=== PATIENT | female | born 1965 | race African-American/Black ===

== ENCOUNTER 2017-01-25 12:21 | Inpatient (IN) | payer MEDICARE ==
[~2017-01-25] VITALS: Ht 165.1 cm; Wt 77.9 kg
[2017-01-25 12:52] LABS: BASOPHILS 0.1 % (0-2); EOSINOPHILS 0 % (0-7); HEMATOCRIT 40.4 % (36.0-48.0); HEMOGLOBIN 13.4 g/dL (12-16); IMMATURE GRANULOCYTES 0.3 % (0-5); LYMPHOCYTES 13.1 % (15-50); MCH 31.8 pg (26.0-34.0); MCHC 33.2 g/dL (31.0-37.0); MCV 95.7 fL (80.0-100.0); MEAN PLATELET VOLUME 11.2 fL (7.4-10.4); MONOCYTES 6.5 % (2-11); PLATELET COUNT 394 10x3/uL (130-400); RBC 4.22 10x6/uL (4.00-5.40); RDW 18.2 % (11.5-14.5); WBC 18.5 10x3/uL (4.8-10.8)
[2017-01-25 13:07] LABS: ALBUMIN 4.3 g/dL (3.4-5.0); ANION GAP 27.6 mmol/L (8-16); BILIRUBIN - TOTAL 0.57 mg/dL (0.2-1.3); CREATININE - SERUM 9.8 mg/dL (0.6-1.3); POTASSIUM - SERUM 4.6 mmol/L (3.5-5.1); PROTEIN - SERUM 9.4 g/dL (6.4-8.2)
--- NOTE | 2017-01-25 15:47 | NUR ---
RECEIVED PT TO ROOM 2126, VIA WHEELCHAIR, PT TRANSFER SELF TO BED WITH NO PROBLEM. ORIENTED PT TO ROOM AND CALL LIGHT. PT FEELING A LITTLE NAUSEATED BUT WAS GIVEN 8MG OF ZOFRAN IN ER. WILL ASSESS PT AND START PLAN OF CARE.
[2017-01-25 16:26] VITALS: BP 146/82; BMI 28.1
[2017-01-25 17:05] LABS: APPEARANCE HAZY (CLEAR); COLOR YELLOW (YELLOW); GLUCOSE 1000 mg/dL (NEGATIVE); KETONE SMALL mg/dL (NEGATIVE); LEUKOCYTE ESTERASE TRACE (NEGATIVE); NITRITE NEGATIVE (NEGATIVE); PROTEIN 2+ mg/dL (NEGATIVE)
[2017-01-25 17:06] LABS: BACTERIA MANY /hpf (NONE SEEN); BILIRUBIN NEGATIVE (NEGATIVE); MUCUS <1+ /lpf (NONE SEEN); RED CELLS - URINE 0-5 /hpf (0-5); UROBILINOGEN NORMAL (NORMAL)
--- NOTE | 2017-01-25 17:36 | NUR ---
BLOOD SUGAR OF 404, 20UNITS OF HUMALOG GIVEN PER S/S. AND SANDIP CARRANZA NOTIFIED. WILL RECHECK AGAIN IN ABOUT 1HR. PT IN BED, DENIES ANY NEEDS AT THIS TIME. CALL LIGHT IN REACH, NAD NOTED, WILL CONTINUE TO MONITOR.
[2017-01-25 17:51] LABS: CKMB 7.8 U/L (0.0-3.6); CREATINE KINASE 294 UL (21-215); MAGNESIUM - SERUM 2.3 mg/dL (1.8-2.4); PHOSPHOROUS 5.5 mg/dL (2.5-4.9)
--- NOTE | 2017-01-25 19:34 | NUR ---
ASSESSMENT COMPLETE, A&O. VITALS STABLE. RESPERATIONS EVEN ON RA. IV TO RIGHT HAND WITH VANC. INFUSING. NO S/S ADVERSE REACTION NOTED. IV SITE CLEAN AND DRY. PT DENIES NEEDS, BED LOW, CL IN REACH.
[2017-01-25 20:00] VITALS: BP 141/46
[2017-01-25] MEDS ORDERED: LEVEMIR100 U/M1 SC (20:21)
[2017-01-25] MEDS ORDERED: CELEXA10 MG PO (20:21)
[2017-01-25] MEDS ORDERED: LIPITOR10 MG PO (20:22)
[2017-01-25] MEDS ORDERED: ZOFRAN ODT4 MG/UDTAB PO (20:23)
[2017-01-25] MEDS ORDERED: STOOL SOFTENER100 M1 PO (20:23)
[2017-01-25] MEDS ORDERED: NEURONTIN 400400 MG PO (20:23)
[2017-01-25] MEDS ORDERED: REQUIP0.5 MG PO (20:24)
[2017-01-25] MEDS ORDERED: PLAVIX75 MG PO (20:24)
[2017-01-25] MEDS ORDERED: CATAPRES0.2 MG PO (20:25)
[2017-01-25] MEDS ORDERED: NORVASC10 MG PO (20:25)
[2017-01-25] MEDS ORDERED: ISOSORBIDE MONO60 M1 PO (20:26)
[2017-01-25] MEDS ORDERED: TUMS500 MG PO (20:26)
[2017-01-25] MEDS ORDERED: ACETAMINOPHEN500 M1 PO (20:28)
[2017-01-25] MEDS ORDERED: GLIMEPIRIDE4 MG PO (20:28)
[2017-01-25] MEDS ORDERED: HYDRALAZINE HC100 MG PO (20:29)
[2017-01-25] MEDS ORDERED: METOPROLOL TAR100 M1 PO (20:29)
--- NOTE | 2017-01-25 20:34 | NUR ---
NORCO 1 TAB GIVEN FOR C/O PAIN TO HEAD. RATES PAIN AT A 6 ON PAIN SCALE. AT BED SIDE WITH PTS HOME MEDICATIONS, MED REC COMPLETE.
--- NOTE | 2017-01-25 21:47 | NUR ---
HS MEDS GIVEN, BS 272, COVERED PER S/S. AT BED SIDE, BED LOW, CL IN REACH, PT DENIES NEEDS.
--- NOTE | 2017-01-26 00:11 | NUR ---
ASSESSMENT UNCHANGED. VSS, AFEBRILE. RESP EVEN UNLABORED. NO NEEDS VOICED. WILL CONT TO MONITOR.
--- NOTE | 2017-01-26 03:13 | NUR ---
RESTING WITH EYES CLOSED, RESPERATIONS EVEN, NO S/S DISTRES NOTED.
[2017-01-26 03:57] VITALS: BP 138/42
[2017-01-26 06:26] LABS: HEMATOCRIT 41.3 % (36.0-48.0); HEMOGLOBIN 13.4 g/dL (12-16); MCH 31.7 pg (26.0-34.0); MCHC 32.4 g/dL (31.0-37.0); MCV 97.6 fL (80.0-100.0); MEAN PLATELET VOLUME 11.6 fL (7.4-10.4); PLATELET COUNT 413 10x3/uL (130-400); RBC 4.23 10x6/uL (4.00-5.40); RDW 18.2 % (11.5-14.5); WBC 20.4 10x3/uL (4.8-10.8)
[2017-01-26 06:35] LABS: ANION GAP 23.5 mmol/L (8-16); CALCIUM 10.6 mg/dL (8.5-10.1); CARBON DIOXIDE 22.3 mmol/L (21.0-32.0); CREATININE - SERUM 10.9 mg/dL (0.6-1.3); VANCOMYCIN - RANDOM 14.7 ug/mL (10.0-20.0)
[2017-01-26 06:37] LABS: POTASSIUM - SERUM 3.8 mmol/L (3.5-5.1)
[2017-01-26 07:23] LABS: BASOPHILS 1 % (0-2); LYMPHOCYTES 19 % (15-50); MONOCYTES 2 % (2-11); NEUTROPHILS 75 % (40-80); PLATELET ESTIMATE NORMAL
--- NOTE | 2017-01-26 07:30 | NUR ---
RESTING QUIETLY RESP UNLABORED NAD NOTED
[2017-01-26 12:16] VITALS: Ht 165.1 cm; Wt 77.9 kg
[2017-01-26 19:00] VITALS: BP 198/107
--- NOTE | 2017-01-26 19:50 | NUR ---
INITIAL ROUNDS COMPLETED AT 1910 HRS. ASSESSMENT COMPLETED AT THAT TIME. IV TO R HAND WITH NS AT 10CC/HR. IV PATENT. LAVF WITH GOOD BRUIT AND THRILL. R CHEST HEMOSPLIT CLEAN, DRY AND INTACT. LUNGS ESSENTIALLY CTA. HAS C/O NAUSEA. ZOFRAN 4MG SIVP GIVNE. PT SITTING UP IN A CHAIR. WILL CONTINUE TO MONITOR.
--- NOTE | 2017-01-26 20:01 | NUR ---
BP ELEVATED. 198/107 THEN 176/97. OTHER VSS. RENAL SERVICES PAGED.
--- NOTE | 2017-01-26 20:14 | NUR ---
Rolo CARRANZA APN FROM RENAL SERVICES RETURNS CALL. INFORMED OF PT'S BP, OTHER VS AND OVERALL STATUS. NEW ORDERS RECEIVED AND NOTED.
--- NOTE | 2017-01-26 22:04 | NUR ---
PM MEDS INCLUDING CLONIDINE 0.1MG PO FOR ELEVATED BP. PT CURRENTLY RESTING WITH EYES CLOSED. RESP EVEN AND REGULAR. SR UP X2, CALL LIGHT WITHIN REACH.
[2017-01-26 23:19] VITALS: BP 155/84
--- NOTE | 2017-01-26 23:23 | NUR ---
B NOW 155/84. PT DENIES ANY DISCOMFORT. WILL CONTINUE TO MONITOR.
[2017-01-27] VITALS: BP 155/84
--- NOTE | 2017-01-27 02:24 | NUR ---
PT RESTING WITH EYES CLOSED. RESP EVEN AND REGULAR. SR UP X2, CALL LIGHT WITHIN REACH.
[2017-01-27 04:00] VITALS: BP 140/83
--- NOTE | 2017-01-27 04:41 | NUR ---
NORCO PO GIVEN FOR C/O ABD PAIN. DENIES ANY NAUSEA. STERILE CONTAINER IN BR FOR URINE SAMPLE. REINFORCED TO PT NEED SAMPLE NEXT TIME SHE URINATES. PT STATES UNDERSTANDING. WARM BLANKET PROVIDED PER REQUEST. WILL CONTINUE TO MONITOR. CALL LIGHT WITHIN REACH.
--- NOTE | 2017-01-27 06:30 | NUR ---
VSS THIS AM. PT DENIES ANY DISCOMFORT. NEEDS MET; WILL CONTINUE TO MONITOR.
[2017-01-27 06:52] LABS: BASOPHILS 0.1 % (0-2); EOSINOPHILS 0.2 % (0-7); HEMATOCRIT 36.8 % (36.0-48.0); IMMATURE GRANULOCYTES 0.2 % (0-5); LYMPHOCYTES 22.5 % (15-50); MCH 31.5 pg (26.0-34.0); MCHC 32.6 g/dL (31.0-37.0); MCV 96.6 fL (80.0-100.0); MONOCYTES 7.1 % (2-11); NEUTROPHILS 69.9 % (40-80); RBC 3.81 10x6/uL (4.00-5.40); RDW 17.7 % (11.5-14.5)
[2017-01-27 06:53] LABS: PLATELET COUNT 327 10x3/uL (130-400); WBC 12.3 10x3/uL (4.8-10.8)
[2017-01-27 07:15] LABS: ANION GAP 25.6 mmol/L (8-16); CARBON DIOXIDE 17.5 mmol/L (21.0-32.0); VANCOMYCIN - RANDOM 20.8 ug/mL (10.0-20.0)
--- NOTE | 2017-01-27 07:20 | NUR ---
REPORT RECIVED. PT RESTING QUIELY, RR EVEN AND UNLABORED. REPORTS FEELING "NOT GOOD." REQUESTED TO HAVE DIALYSIS TODAY AND GABAPENTIN RESTARTED. WILL SPEAK TO RENAL SERVICER ABOUT PT REQUEST. WILL CTM.
[2017-01-27 07:21] LABS: PHOSPHOROUS 9.2 mg/dL (2.5-4.9); POTASSIUM - SERUM 5.1 mmol/L (3.5-5.1)
[2017-01-27 08:13] VITALS: BP 139/70
--- NOTE | 2017-01-27 09:00 | NUR ---
PT TRANSFERRED TO [facility].
[2017-01-27 15:40] VITALS: BP 198/113
--- NOTE | 2017-01-27 15:45 | NUR ---
PTS BP IS ELEVATED. GAVE PRN BP MED, WILL RECHECK IN 1 HR AND CTM.
[2017-01-27 19:20] VITALS: BP 150/91
--- NOTE | 2017-01-27 20:03 | NUR ---
ASSESSMENT COMPLETED AT 1940 HRS. VSS. IV TO R HAND SL. LAVF WITH GOOD BRUIT AND THRILL. R CHEST HEMOSPLIT CLEAN, DRY AND INTACT. LUNGS DIMINISHED IN BASES BILAT. DENIES ANY DISCOMFORT. WILL CONTINUE TO MONITOR.
--- NOTE | 2017-01-27 22:11 | NUR ---
PM FSBS 164. 4 UNITS HUMALOG GIVEN SUB-Q TO UPPER R ARM. PM MEDS GIVEN, PM SNACK SERVED. WILL CONTINUE TO MONITOR.
--- NOTE | 2017-01-28 00:09 | NUR ---
PT RSTING WITH EYES CLOSED. RESP EVEN AND REGULAR. SR UP X2,CALL LIGHT WITHIN REACH.
[2017-01-28 00:40] VITALS: BP 106/66
--- NOTE | 2017-01-28 03:57 | NUR ---
PT RESTING WITH EYES CLOSED. RESP EVEN AND REGULAR. SR UP X2, CALL LIGHT WITHIN REACH.
[2017-01-28 04:30] VITALS: BP 132/83
[2017-01-28 06:17] LABS: BASOPHILS 0.1 % (0-2); EOSINOPHILS 0.9 % (0-7); HEMATOCRIT 37.4 % (36.0-48.0); HEMOGLOBIN 12.1 g/dL (12-16); IMMATURE GRANULOCYTES 0.2 % (0-5); LYMPHOCYTES 26.4 % (15-50); MCH 31.8 pg (26.0-34.0); MCHC 32.4 g/dL (31.0-37.0); MCV 98.4 fL (80.0-100.0); MEAN PLATELET VOLUME 11.4 fL (7.4-10.4); MONOCYTES 9.6 % (2-11); NEUTROPHILS 62.8 % (40-80); PLATELET COUNT 310 10x3/uL (130-400); RDW 17.7 % (11.5-14.5); WBC 8.5 10x3/uL (4.8-10.8)
--- NOTE | 2017-01-28 06:36 | NUR ---
VSS THROUGHOUT NIGHT. PT STATED NORCO HELPED FOOT PAIN. NEEDS MET; WILL CONTINUE TO MONITOR.
[2017-01-28 06:43] LABS: ANION GAP 24.9 mmol/L (8-16); CARBON DIOXIDE 19.9 mmol/L (21.0-32.0); PHOSPHOROUS 8.3 mg/dL (2.5-4.9)
[2017-01-28 06:53] LABS: POTASSIUM - SERUM 3.8 mmol/L (3.5-5.1)
--- NOTE | 2017-01-28 07:19 | NUR ---
REPORT RECIEVED. PT DENIES NEEDS AT THIS TIME. RR EVEN AND UNLABORED. DENIES PAIN. PT RESTING QUIETLY, WILL CTM.
[2017-01-28 08:00] VITALS: BP 158/86
[2017-01-28 13:34] VITALS: BP 157/70
[2017-01-28 17:18] VITALS: BP 146/48
--- NOTE | 2017-01-28 18:18 | NUR ---
PT RESTING QUIELTY, GAVE PRN PAIN MED. RR EVEN AND UNLABORED, WILL GIVE REPORT ON PT CONDTION FOR THE DAY.
[2017-01-28 19:00] VITALS: BP 148/63
[2017-01-29] VITALS: BP 151/77
--- NOTE | 2017-01-29 00:39 | NUR ---
C/O LEG PAIN. MEDICATED WITH NORCO.
[2017-01-29 04:03] VITALS: BP 167/90
[2017-01-29 05:55] LABS: BASOPHILS 0.3 % (0-2); EOSINOPHILS 3.5 % (0-7); HEMOGLOBIN 12.7 g/dL (12-16); IMMATURE GRANULOCYTES 0.1 % (0-5); LYMPHOCYTES 38.9 % (15-50); MCHC 31.8 g/dL (31.0-37.0); MCV 97.6 fL (80.0-100.0); MEAN PLATELET VOLUME 10.9 fL (7.4-10.4); MONOCYTES 8.1 % (2-11); NEUTROPHILS 49.1 % (40-80); PLATELET COUNT 285 10x3/uL (130-400); RDW 16.9 % (11.5-14.5); WBC 7.8 10x3/uL (4.8-10.8)
[2017-01-29 06:36] LABS: ANION GAP 25.4 mmol/L (8-16); CALCIUM 7.5 mg/dL (8.5-10.1); CARBON DIOXIDE 19.5 mmol/L (21.0-32.0); POTASSIUM - SERUM 3.9 mmol/L (3.5-5.1); VANCOMYCIN - RANDOM 31.6 ug/mL (10.0-20.0)
--- NOTE | 2017-01-29 07:26 | NUR ---
AM ROUNDS- PT IN BED, DENIES ANY NEEDS AT THIS TIME. RESP EVEN AND UNLABORED, RT HAND IV SL. BED LOW AND WHEELS LOCKED, BEDSIDE RAILS X2. CALL LIGHT IN REACH, NAD NOTED, WILL CONTINUE TO MONITOR.
[2017-01-29 08:00] VITALS: BP 168/86
--- NOTE | 2017-01-29 09:37 | NUR ---
AM MEDS GIVEN AT THIS TIME. PT IN BED, DENIES ANY NEEDS A THIS TIME. CALL LIGHT IN REACH, NAD NOTED, WILL CONTINUE TO MONITOR.
--- NOTE | 2017-01-29 10:38 | NUR ---
PT TRANSFERED TO DIALYSIS VIA WHEELCHAIR NAD NOTED.
[2017-01-29 16:00] VITALS: BP 126/81
--- NOTE | 2017-01-29 16:17 | NUR ---
BLOOD SUGAR OF 214, 8UNITS OF HUMALOG GIVEN PER S/S. ALSO ADMINISTERED 5MG OF NORCO FOR PAIN LEVEL OF 10/10. PT UP TO SIDE OF BED, RESP EVEN AND UNLABORED, DENIES ANY OTHER NEEDS AT THIS TIME. CALL LIGHT IN REACH, NAD NOTED, WILL CONTINUE TO MONITOR.
[2017-01-29 19:00] VITALS: BP 177/92
--- NOTE | 2017-01-29 20:16 | NUR ---
RESTING QUIETLY WATCHING TV DENIES ANY NEEDS OR DISCOMFORT NAD NOTED
--- NOTE | 2017-01-29 20:58 | NUR ---
HS MEDS GIVEN WITH FRESH ICE WATER, BS 201, COVERED PER S/S.
--- NOTE | 2017-01-29 21:31 | NUR ---
NORCO 1 TAB GIVEN FOR C/O PAIN TO BACK AND ABD. RATES PAIN AT AN 8 ON PAIN SCALE.
[2017-01-30] VITALS: BP 160/86
--- NOTE | 2017-01-30 02:58 | NUR ---
RESTING WITH EYES CLOSED, RESPERATIONS EVEN, NO S/S DISTRESS NOTED.
[2017-01-30 04:37] VITALS: BP 169/79
--- NOTE | 2017-01-30 05:05 | NUR ---
ZOFRAN 4 MG GIVEN FOR C/O NAUSEA.
[2017-01-30 05:13] LABS: BASOPHILS 0.2 % (0-2); HEMATOCRIT 36.5 % (36.0-48.0); HEMOGLOBIN 11.9 g/dL (12-16); IMMATURE GRANULOCYTES 0.2 % (0-5); LYMPHOCYTES 38.7 % (15-50); MCH 31.5 pg (26.0-34.0); MCHC 32.6 g/dL (31.0-37.0); MCV 96.6 fL (80.0-100.0); MEAN PLATELET VOLUME 10.9 fL (7.4-10.4); MONOCYTES 13.7 % (2-11); NEUTROPHILS 43.2 % (40-80); PLATELET COUNT 248 10x3/uL (130-400); RBC 3.78 10x6/uL (4.00-5.40); RDW 16.6 % (11.5-14.5); WBC 8.6 10x3/uL (4.8-10.8)
[2017-01-30 07:01] LABS: ANION GAP 20.6 mmol/L (8-16); CALCIUM 7.8 mg/dL (8.5-10.1); CARBON DIOXIDE 23.3 mmol/L (21.0-32.0); CREATININE - SERUM 10.4 mg/dL (0.6-1.3); POTASSIUM - SERUM 3.9 mmol/L (3.5-5.1); VANCOMYCIN - RANDOM 22.8 ug/mL (10.0-20.0)
[2017-01-30 07:05] LABS: PHOSPHOROUS 9.1 mg/dL (2.5-4.9)
[2017-01-30 08:42] VITALS: BP 163/78
[2017-01-30 10:17] LABS: HEPATITIS C ANTIBODY <0.1 (0.0-0.9)
[2017-01-30 12:40] VITALS: BP 143/89
--- NOTE | 2017-01-30 15:55 | NUR ---
UP ON SIDE OF BED - STATES "I AM FEELING BETTER" - DENIES ANY NEEDS AT THIS TIME
--- NOTE | 2017-01-30 19:20 | NUR ---
PT SITTING ON SIDE OF BED. C/O FELLING LIKE SHE NEEDS TO THROW UP. PT DENIES ANY OTHER NEEDS. NO S/S OF DISTRESS. WILL CHECK TO SEE IF ITS TIME FOR ZOFRAN. WILL CPOC
[2017-01-30 20:00] VITALS: BP 116/92
--- NOTE | 2017-01-30 22:17 | NUR ---
PT RESTING IN BED. C/O PAIN AND PAIN MED GIVEN. 8 UNITS GIVEN FOR A BLOOD SUGAR OF 234. PT DENIES ANY NEEDS. NO S/S OF DISTRESS. WILL CPOC
[2017-01-31 04:00] VITALS: BP 172/47
[2017-01-31 06:23] LABS: BASOPHILS 0.1 % (0-2); EOSINOPHILS 4.5 % (0-7); HEMATOCRIT 34.7 % (36.0-48.0); HEMOGLOBIN 11.8 g/dL (12-16); LYMPHOCYTES 28.7 % (15-50); MCH 32.2 pg (26.0-34.0); MCV 94.8 fL (80.0-100.0); MEAN PLATELET VOLUME 11.8 fL (7.4-10.4); MONOCYTES 9.7 % (2-11); RBC 3.66 10x6/uL (4.00-5.40); RDW 16.3 % (11.5-14.5); WBC 6.9 10x3/uL (4.8-10.8)
[2017-01-31 06:25] LABS: PLATELET COUNT 129 10x3/uL (130-400)
[2017-01-31 06:38] LABS: ANION GAP 24.5 mmol/L (8-16); CALCIUM 7.3 mg/dL (8.5-10.1); CARBON DIOXIDE 19.9 mmol/L (21.0-32.0); POTASSIUM - SERUM 4.4 mmol/L (3.5-5.1)
[2017-01-31 06:59] LABS: PHOSPHOROUS 12.8 mg/dL (2.5-4.9)
--- NOTE | 2017-01-31 07:30 | NUR ---
PT SITTING UP ON SIDE OF BED DENIES ANY NEEDS WILL CONT TO MONITOR
[2017-01-31 07:53] VITALS: BP 134/89
--- NOTE | 2017-01-31 10:13 | NUR ---
PT TO DIALYSIS
--- NOTE | 2017-01-31 13:47 | NUR ---
Patient Name: JIMBO LEVY Admission Status: ER Accout number: [id number] Admission Date: 01-25-2017 : 1965 Admission Diagnosis:INFECT/INFLM REACT D/T OTH CARDI/VASC DEV/IMPLNT/GRFT, Attending: Andre Rowan Current LOS: 6 Anticipated DC Date: 01-31-2017 Planned Disposition: Home Primary Insurance: [employer] MEDICARE ADV Discharge Planning Comments: * Is the patient Alert and Oriented? Yes 0 * How many steps to enter\\exit or inside your home? 6 0 * PCP RAISA MEDINA 0 * Pharmacy [facility] ([facility]RAISA 0 * Preadmission Environment Home with Family 0 * ADLs Independent 0 * Equipment Cane Glucometer 0 * Other Equipment NO MEDICAL EQUIPMENT PROVIDER PREFERENCE 0 * List name and contact numbers for known caregivers / representatives who currently or will assist patient after discharge: GAY NOREEN, "MY BABY RAQUEL", 0 * Community resources currently utilized Other 0 * Please name any agencies selected above. OUTPATIENT DILAYSIS, [facility], [facility]TS, 0600, [facility] 0 * Additional services required to return to the preadmission environment? No 0 * Can the patient safely return to the preadmission environment? Yes 0 * Has this patient been hospitalized within the prior 30 days at any hospital? No 0 CM MET WITH PT IN ROOM TO DISCUSS DISCHARGE PLANNING AND NEEDS. PT REPORTS LIVING AT HOME INDEPENDENTLY WITH HER ADULT DAUGHTER. PT HAS CANE AND GLUCOMETER WITH NO MEDICAL EQUIPMENT PROVIDER PREFERENCE AND NO OUTSIDE SERVICES ASSISTING IN THE HOME. PT ATTENDS [facility], [facility], 0600 AND TAKES THE [place] BUS. CM DISCUSSED AVAILABILITY OF HOME HEALTH, REHAB SERVICES AND MEDICAL EQUIPMENT. PT DENIES DISCHARGE NEEDS, REPORTS HER MOTHER WILL PICK HER UP FOR DISCHARGE HOME TODAY. IMPORTANT MESSAGE FROM MEDICARE PROVIDED AND EXPLAINED. Medical Records Tech: Jude Snell
--- NOTE | 2017-01-31 15:20 | NUR ---
WENT OVER DC PAPERWORK WITH PT PT VERBALIZES UNDERSTANDING. PT ASKING ABOUT SCRIPTS FOR MANPREET AND WOODROW. NONE NOTED. WILL CALL DR AND ASK ABOUT THEM. PT STILL WAITING ON HER RIDE. DC PIV WITH CATH TIP INTACT
--- NOTE | 2017-01-31 15:23 | NUR ---
PAGED SON JOHNSON CREATIVE DIRECTOR ABOUT PT SCRIPTS
--- NOTE | 2017-01-31 15:26 | NUR ---
SPOKE WITH SON MCCLURE. SHE SAID THERE IS NO ONE AT HOSPITAL TO WRITE PT SCRIPTS SHE WILL HAVE TO WAIT UNTIL THE DRS ROUND AT DIALYSIS. WILL RELAY THIS TO PT.
--- NOTE | 2017-01-31 18:33 | NUR ---
PT STILL WAITING ON A RIDE TO PICK HER UP
--- NOTE | 2017-01-31 18:51 | NUR ---
PT WAS WHEELED OUT TO FRONT ENTRANCE BY ARIN MARIN
== END 2017-01-31 18:52 | disposition home or self-care (01) | DRG 314 ==
LOC: D.ER 12:21 → D.M2 14:12
PROVIDERS: Emergency Medicine; Internal Medicine Nephrology; ADMIT Internal Medicine Nephrology
PROC: 5A1D00Z (ICD-10-PCS; principal; 2017-01-27)
DX: T82.7XXA Infection and inflammatory reaction due to other cardiac and vascular devices, implants and grafts, initial encounter (principal); A41.9 Sepsis, unspecified organism; N18.6 End stage renal disease; I12.0 Hypertensive chronic kidney disease with stage 5 chronic kidney disease or end stage renal disease; Y83.8 Other surgical procedures as the cause of abnormal reaction of the patient, or of later complication, without mention of misadventure at the time of the procedure; E11.22 Type 2 diabetes mellitus with diabetic chronic kidney disease; E11.65 Type 2 diabetes mellitus with hyperglycemia; Z99.2 Dependence on renal dialysis; Z87.891 Personal history of nicotine dependence; E83.39 Other disorders of phosphorus metabolism; E83.52 Hypercalcemia; D63.1 Anemia in chronic kidney disease

== ENCOUNTER 2017-02-25 12:50 | Inpatient (IN) | payer MEDICARE ==
[~2017-02-25 12:50] MED LIST: ACETAMINOPHEN500 M1 PO; CATAPRES0.2 MG PO; CELEXA10 MG PO; GLIMEPIRIDE4 MG PO; HYDRALAZINE HC100 MG PO; ISOSORBIDE MONO60 M1 PO; LEVEMIR100 U/M1 SC; LIPITOR10 MG PO; METOPROLOL TAR100 M1 PO; NEURONTIN 400400 MG PO; NORVASC10 MG PO; PLAVIX75 MG PO; REQUIP0.5 MG PO; STOOL SOFTENER100 M1 PO; TUMS500 MG PO; ZOFRAN ODT4 MG/UDTAB PO
[2017-02-25 13:28] LABS: BASOPHILS 0.1 % (0-2); EOSINOPHILS 0 % (0-7); HEMATOCRIT 39.2 % (36.0-48.0); HEMOGLOBIN 12.6 g/dL (12-16); IMMATURE GRANULOCYTES 0.2 % (0-5); LYMPHOCYTES 13.4 % (15-50); MCH 31.7 pg (26.0-34.0); MCHC 32.1 g/dL (31.0-37.0); MCV 98.5 fL (80.0-100.0); MEAN PLATELET VOLUME 10.7 fL (7.4-10.4); MONOCYTES 6.4 % (2-11); NEUTROPHILS 79.9 % (40-80); RBC 3.98 10x6/uL (4.00-5.40); RDW 17.5 % (11.5-14.5); WBC 16.2 10x3/uL (4.8-10.8)
[2017-02-25 13:29] LABS: PLATELET COUNT 496 10x3/uL (130-400)
[2017-02-25 13:50] LABS: ALBUMIN 4.4 g/dL (3.4-5.0); ALKALINE PHOSPHATASE 98 U/L (46-116); ALT (SGPT) 14 U/L (10-68); AMYLASE - SERUM 119 U/L (25-115); BILIRUBIN - TOTAL 0.41 mg/dL (0.2-1.3); CALCIUM 10.4 mg/dL (8.5-10.1); CARBON DIOXIDE 15.4 mmol/L (21.0-32.0); CREATININE - SERUM 12.1 mg/dL (0.6-1.3); LIPASE 223 U/L (73-393); MAGNESIUM - SERUM 2.6 mg/dL (1.8-2.4); POTASSIUM - SERUM 4.3 mmol/L (3.5-5.1); PROTEIN - SERUM 8.9 g/dL (6.4-8.2); SODIUM 126 mmol/L (136-145); UREA NITROGEN 53 mg/dL (7-18); eGFR NON AFRICAN AMERICAN 3 mL/min (90-120)
[2017-02-25 14:04] LABS: CALC OSMOLALITY 286 mosm/kg (275-300)
[2017-02-25 14:06] LABS: CHLORIDE - SERUM 85 mmol/L (98-107); GLUCOSE 467 mg/dL (74-106)
[2017-02-25 14:13] LABS: KETONE - SERUM NEGATIVE (NEGATIVE)
--- NOTE | 2017-02-25 15:40 | NUR ---
PATIENT TO FLOOR FROM ER, PATIENT IS ALERT AND ORIENTED AT THIS TIME. PATIENT HAS A R HAND IV INFUSING WITH NS AT 100ML/HR. PATIENT HAS A R CHEST HEMOSPLIT FOR DIAYLSIS. ALSO HAS A L AVF WITH BRUIT AND THRILL NOTED. BREATH SOUNDS CLEAR AND EQUAL. S1S2 HEART SOUNDS NOTED. PATIENT DENIES ANY NEEDS OR PAIN. BED IS LOW AND LOCKED. CPOC
[2017-02-25 16:11] VITALS: BP 171/79
[2017-02-25 16:15] VITALS: BP 171/79; BMI 21.6
--- NOTE | 2017-02-25 16:45 | NUR ---
FSBS 256, 16 UNITS OF HUMALOG GIVEN PER SLIDING SCALE. PATIENT DENIES ANY NEEDS. CPOC
--- NOTE | 2017-02-25 18:12 | NUR ---
PATIENT RESTING, NAD NOTED. AROUSES TO VOICE DENIES ANY NEEDS. CPOC
[2017-02-25 19:00] VITALS: BP 120/70
--- NOTE | 2017-02-25 19:05 | NUR ---
ROUNDING NOTE: PT IS SLEEPING DURING CHANGE OF SHIFT. NS RUNNING AT 100CC/HR. PT IS LEFT ARM RESERVE D/T LEFT ARM FISTULA. WILL CONT TO MONITOR.
[2017-02-26] VITALS: BP 112/57
--- NOTE | 2017-02-26 03:00 | NUR ---
ANSWERED CALLBELL, PT REQUESTING SOMETHING FOR PAIN, REPORTING 6/10 PAIN IN BILATERAL FEET DUE TO LONGSTANDING NEUROPATHY WELL ABDOMINAL PAIN. PT TAKES NEURONTIN 400MG TID AT HOME, BUT SHE DOES NOT HAVE NEURONTIN OR ANYTHING ELSE ORDERED FOR PAIN CURRENTLY. PAGED RENAL ANSWERING SERVICE. RECEIVED CALL BACK FROM SON MCKEON APN W/ NEW ORDERS FOR TYLENOL PRN AND A ONE TIME DOSE OF NEURONTON 400MG. A CONTINUED ORDER FOR NEURONTIN WILL BE RE-EVALUATED BY THE RENAL TEAM IN THE AM.
[2017-02-26 04:10] VITALS: BP 141/73
[2017-02-26 04:39] LABS: BASOPHILS 0.1 % (0-2); EOSINOPHILS 0.2 % (0-7); HEMATOCRIT 32.9 % (36.0-48.0); HEMOGLOBIN 10.5 g/dL (12-16); IMMATURE GRANULOCYTES 0.2 % (0-5); LYMPHOCYTES 24.8 % (15-50); MCHC 31.9 g/dL (31.0-37.0); MCV 97.1 fL (80.0-100.0); MEAN PLATELET VOLUME 10.5 fL (7.4-10.4); MONOCYTES 6.7 % (2-11); PLATELET COUNT 440 10x3/uL (130-400); RBC 3.39 10x6/uL (4.00-5.40); RDW 17.2 % (11.5-14.5)
[2017-02-26 06:54] LABS: ANION GAP 24.9 mmol/L (8-16); CALCIUM 9.3 mg/dL (8.5-10.1); CARBON DIOXIDE 18.8 mmol/L (21.0-32.0); CREATININE - SERUM 12.4 mg/dL (0.6-1.3); POTASSIUM - SERUM 3.7 mmol/L (3.5-5.1)
[2017-02-26 07:07] LABS: APPEARANCE TURBID (CLEAR); BILIRUBIN NEGATIVE (NEGATIVE); COLOR YELLOW (YELLOW); GLUCOSE NEGATIVE (NEGATIVE); KETONE NEGATIVE (NEGATIVE); NITRITE NEGATIVE (NEGATIVE); PROTEIN 3+ mg/dL (NEGATIVE); SPECIFIC GRAVITY 1.025 (1.005-1.020); UROBILINOGEN NORMAL (NORMAL)
[2017-02-26 07:08] LABS: BACTERIA MODERATE /hpf (NONE SEEN); HYALINE CAST 0-5 /lpf (NONE SEEN); MUCUS <1+ /lpf (NONE SEEN); WHITE CELLS - URINE 25-50 /hpf (0-5); YEAST >1+ /hpf (NONE SEEN)
[2017-02-26 07:09] LABS: WAXY CAST 0-5 /lpf (NONE SEEN)
--- NOTE | 2017-02-26 07:30 | NUR ---
RECEIVED PT IN BED EYES CLOSED RESP UNLABORED SKIN W/D NAD NOTED
[2017-02-26 07:55] VITALS: BP 141/56
--- NOTE | 2017-02-26 10:31 | NUR ---
PT TO DIALYSIS VIA BED IN STABLE CONDITION
--- NOTE | 2017-02-26 11:06 | NUR ---
FSBS 109
[2017-02-26 13:17] VITALS: BMI 21.6
[2017-02-26 15:55] VITALS: BP 93/44
--- NOTE | 2017-02-26 16:58 | NUR ---
FSBS 142
[2017-02-26 19:00] VITALS: BP 146/73
--- NOTE | 2017-02-26 19:30 | NUR ---
ROUNDING NOTE: PT IS AWAKE AND UP WALKING IN THE HALLS AT THE CHANGE OF SHIFT. PT IS AAOX3, COMPLAINS OF BACK PAIN. SHE IS NOT DUE FOR PAIN MEDS AT THIS TIME, BUT OFFERED PT WARM COMPRESS FOR BACK, WHICH SHE ACCEPTED. PT REQUESTING PBJ, BUT WE DON'T HAVE BREAD ON UNIT, GIVEN NEFTALY CRACKERS AND PB INSTEAD. WILL PUT IN A DIETARY REQUEST FOR TOMORROW FOR PBJ SANDWICH. PT HAS RIGHT HAND SALINE LOC. LEFT ARM RESERVE, LEFT ARM AVF, POSITIVE THRILL, POSITIVE BRUIT. WILL CONT TO MONITOR.
[2017-02-27 00:55] VITALS: BP 176/69
[2017-02-27 04:02] VITALS: BP 132/58
--- NOTE | 2017-02-27 07:30 | NUR ---
RECEIVED PT IN BED EYES CLOSED RESP UNLABORED NAD NOTED
[2017-02-27 07:45] VITALS: BP 122/53
[2017-02-27 11:37] VITALS: BP 149/73
--- NOTE | 2017-02-27 12:07 | NUR ---
FSBS 161 REFUSED COVERAGE
[2017-02-27] MEDS ORDERED: GABAPENTIN100 MG PO (14:51)
--- NOTE | 2017-02-27 15:30 | NUR ---
FOR DISCHARGE: WHEN QUESTIONED IF WANTING A FLU SHOT, PATIENT REPORTS THAT SHE HAS ALREADY HAD ONE FOR THIS YEAR.
--- NOTE | 2017-02-27 16:06 | NUR ---
REVIEWED DISCHARGE INSTRUCTIONS WITH PT STATES UNDERSTANDING COPY GIVEN DCD SALINE LOCK TO RFA WITH IV CATHETER INTACT SITE FREE OF REDNESS OR EDEMA PT DISCHARGED HOME IN STABLE CONDITION LEFT UNIT VIA W/C WITH ALL PERSONAL BELONGINGS
--- NOTE | 2017-02-27 16:16 | NUR ---
Patient Name: JIMBO LEVY Admission Status: ER Accout number: [id number] Admission Date: 02-25-2017 : 1965 Admission Diagnosis:NAUSEA WITH VOMITING, UNSPECIFIED Attending: GALI ROJAS Current LOS: 2 Anticipated DC Date: 02-27-2017 Planned Disposition: Home Primary Insurance: [employer] MEDICARE ADV Discharge Planning Comments: * Is the patient Alert and Oriented? Yes 0 * How many steps to enter\\exit or inside your home? 3 0 * PCP DR. BRENT ZIMMER AT [facility] IN [place] 0 * Pharmacy [facility] IN [place] 0 * Preadmission Environment Home with Family 0 * ADLs Independent 0 * Equipment Cane 0 * Other Equipment NO MEDICAL EQUIPMENT PROVIDER PREFERENCE 0 * List name and contact numbers for known caregivers / representatives who currently or will assist patient after discharge: MELISA GUTIERREZ, MOTHER, GAY SORTO, "JEANA GARCÍA", 0 * Community resources currently utilized Other 0 * Please name any agencies selected above. OUTPATIENT DIALYSIS, [facility], T/T/S, 0600AM, [employer] [facility] AT COSTS OF $10 0 * Additional services required to return to the preadmission environment? No 0 * Can the patient safely return to the preadmission environment? Yes 0 * Has this patient been hospitalized within the prior 30 days at any hospital? Yes 0 CM MET WITH PT IN ROOM TO DISCUSS DISCHARGE PLANNING AND NEEDS. PT REPORTS LIVING AT HOME INDEPENDENTLY WITH HER ADULT DAUGHTER. PT HAS A CANE AND NO MEDICAL EQUIPMENT PROVIDER PREFERENCE PT HAS NO OUTSIDE SERVICES ASSISTING IN THE HOME. PT TAKES [facility] BUS TO AND FROM DIALYSIS AT [facility] ON T/T/S 0600AM SCHEDULE; THE [facility] BUS CHARGES HER $10. CM DISCUSSED AVAILABILITY OF HOME HEALTH, REHAB SERVICES AND MEDICAL EQUIPMENT. PT DENIES DISCHARGE NEEDS AND WANTS A WALKER TO ASSIST WITH WALKING AFTER DIALYSIS, REQUESTED HOME DELIVERY SHE DOES NOT WANT TO WAIT ON IT. PT REPORTS HER FAMILY IS HERE TO PICK HER UP FOR DISCHARGE HOME NOW. IMPORTANT MESSAGE FROM MEDICARE PROVIDED AND EXPLAINED. CM CALLED AND SPOKE TO RENAL NURSE CASEY WHO PROVIDED ORDER FOR WALKER. CM CALLED [facility] IN [place], , SPOKE TO ANSWERING SERVICES TWO TIMES, CARLOS AND KEVON, REQUESTED HOME DELIVERY OF WALKER. CM FAXED REFERRAL TO [facility] AT [phone]. Customer Loyalty Representative: Jude Snell
== END 2017-02-27 16:06 | disposition home or self-care (01) | DRG 640 ==
LOC: D.ER 12:50 → D.M2 15:04
PROVIDERS: Emergency Medicine; ADMIT Internal Medicine
PROC: 5A1D70Z Performance of Urinary Filtration, Intermittent, Less than 6 Hours Per Day (ICD-10-PCS; principal; 2017-02-26)
DX: E87.1 Hypo-osmolality and hyponatremia (principal); N18.6 End stage renal disease; N39.0 Urinary tract infection, site not specified; I12.0 Hypertensive chronic kidney disease with stage 5 chronic kidney disease or end stage renal disease; E11.21 Type 2 diabetes mellitus with diabetic nephropathy; E11.319 Type 2 diabetes mellitus with unspecified diabetic retinopathy without macular edema; E11.65 Type 2 diabetes mellitus with hyperglycemia; Z79.4 Long term (current) use of insulin; E87.8 Other disorders of electrolyte and fluid balance, not elsewhere classified; E11.22 Type 2 diabetes mellitus with diabetic chronic kidney disease; D63.1 Anemia in chronic kidney disease

== ENCOUNTER 2017-04-19 07:34 | Day surgery (SDC) | payer MEDICARE, MEDICAID ==
[~2017-04-19] VITALS: Ht 165.1 cm; Wt 74.8 kg
[~2017-04-19 07:34] MED LIST changes: +GABAPENTIN100 MG PO
[2017-04-19 08:22] LABS: HEMATOCRIT 35.9 % (36.0-48.0); HEMOGLOBIN 11.7 g/dL (12-16); LYMPHOCYTES 21.7 % (15-50); MCH 30.5 pg (26.0-34.0); MCHC 32.6 g/dL (31.0-37.0); MCV 93.7 fL (80.0-100.0); MEAN PLATELET VOLUME 10.6 fL (7.4-10.4); NEUTROPHILS 73.4 % (40-80); PLATELET COUNT 309 10x3/uL (130-400); RBC 3.83 10x6/uL (4.00-5.40); RDW 16.9 % (11.5-14.5); WBC 17.4 10x3/uL (4.8-10.8)
[2017-04-19 08:28] LABS: ANION GAP 19.9 mmol/L (8-16); CALCIUM 8.5 mg/dL (8.5-10.1); CARBON DIOXIDE 22.9 mmol/L (21.0-32.0); CREATININE - SERUM 7.8 mg/dL (0.6-1.3)
[2017-04-19 08:29] LABS: POTASSIUM - SERUM 2.8 mmol/L (3.5-5.1)
[2017-04-19 08:48] VITALS: Ht 165.1 cm; Wt 74.8 kg
[2017-04-19 08:49] LABS: APTT 29.8 SECONDS (22.8-39.4); INR 1.11 (0.85-1.17); PROTIME 13.9 SECONDS (11.6-15.0)
--- NOTE | 2017-04-19 09:42 | NUR ---
0925 INSTRUCTED BY FERNANDA SANDHU AWARE OF LABS AND TO GO WITH IT. SHE STATED NO NEED TO CALL RENAL i QUESTIONED THAT.
--- NOTE | 2017-04-19 10:03 | NUR ---
0930 REPORT TO EMA SANON THAT PATINET HAS POTASSIUM 2.8 AND GLUCOSE 63 TO MONITOR PATIENT TOOK 40 UNITS LEVIMIR LAST NIGHT.
[2017-04-19] MEDS ORDERED: HYDROCODON-ACE1 EAC7 PO (14:34)
--- NOTE | 2017-04-19 15:09 | NUR ---
DR MUSTAFA @ BEDSIDE - VERIFIES AUSCULTATION OF BRUIT LUE
--- NOTE | 2017-04-19 15:45 | NUR ---
PATIENT ARRIVED 1525 FROM SURGERY AV GRAFT.
--- NOTE | 2017-04-19 16:44 | NUR ---
DISCUSSED DC PLANNING WITH PATIENT AND FAMILY PRESENT. DC'D IV, CATH INTACT. INSTRUCTED IF OFFICE DOESN'T CALL ON SATURDAY, CALL FOR APPT ON SATURDAY FOR F/U APPT NEXT WEEK. SCRIPT GIVEN.
--- NOTE | 2017-04-19 16:45 | NUR ---
7843 DC'D HOME WITH FAMILY.
--- NOTE | 2017-04-27 15:06 | OP ---
PATIENT NAME: JIMBO HO MEDICAL RECORD: [id number] :[birth year] LOCATION:[facility] ADMISSION DATE: SURGEON: DILLON MUSTAFA MD DATE OF OPERATION: 04/19/2017 PREOPERATIVE DIAGNOSES: End-stage renal disease and dependence on hemodialysis, poorly controlled diabetes, hypertension, and mechanical complication of a surgically created left arm AV fistula. POSTOPERATIVE DIAGNOSES: End-stage renal disease and dependence on hemodialysis, poorly controlled diabetes, hypertension, and mechanical complication of a surgically created left arm AV fistula. OPERATION PERFORMED: Ligation of AV fistula and implantation of AV graft in the left arm brachial artery to axillary vein in a rainbow configuration. SURGEON: Dillon Mustafa MD ANESTHESIA: General with LMA per ASSESSMENT CLINICIAN REFERRING PHYSICIAN: Dr. Rowan. PREOPERATIVE NOTE: Ms. Jimbo Ho is a 51-year-old -[place] female with end-stage renal disease, diabetes and hypertension, who has a left brachial artery to translocated basilic vein arterial fistula. That fistula has been very problematic and after her most recent angiography, my recommendation was that she be converted to an AV graft and that is what she is brought to the operating room today for. She is presently dialyzing with a right internal jugular tunneled dialysis catheter. DESCRIPTION OF PROCEDURE: With the patient under general anesthesia in supine position, the left arm was prepped and draped in a sterile manner. I examined her with ultrasound and confirmed the location of the brachial artery basilic vein anastomosis and the course of the basilic vein in the upper arm, the size and status of the axillary vein, etc. I then made 2 incisions, one on the medial aspect of the arm just above the antecubital space and I dissected free the previous arterial to basilic vein anastomosis and controlled the brachial artery proximally and distally with doubly looped Silastic tapes. At this point, the fistula was still patent and there was a palpable thrill. I made a transverse axillary incision and exposed the axillary vein and controlled it proximally and distally with Silastic loops. I chose a 6-mm diameter straight standard wall thickness Lincoln Propaten PTFE graft, shortened one end and then occluded the brachial artery and transected the basilic vein approximately a centimeter above the actual suture line of the anastomosis. I was able to flush the artery proximally and distally with heparinized saline and then occluded with the Silastic loops and performed an end-to-end anastomosis beveled end of graft to end of vein with continuous running 6-0 Prolene. When completed and the occluding loops were released, excellent pulsation developed in the graft and the suture line was watertight. The graft and anastomotic region were then flushed with heparinized saline and the graft again clamped. I placed the graft in a very superficial subcutaneous tunnel, which I created from the axillary wound to the distal wound and then pulled the graft back through it. The graft was shortened and beveled. The vein was opened and flushed proximally and distally with heparinized saline. It was of good caliber, the wall already somewhat thickened, toughed, or arterialized. The anastomosis was performed OPERATIVE REPORT [id number] JIMBO HO beveled end of graft to side of vein with continuous running 6-0 Prolene. When completed and the loops and clamps were released, the suture line was hemostatic and excellent flow developed in the graft. There was good flow in the axillary vein proximal and distal to this anastomosis. There was excellent preservation of flow in the brachial artery above and below the arteriovenous anastomosis, and there was good multiphasic Doppler pulsatile flow in the radial artery at the wrist. The wounds were irrigated with Ancef and gentamicin solution. There have been no systemic anticoagulation, so was not necessary to reverse heparin, etc. The wounds were not drained and they were closed in layers with interrupted 3-0 Vicryl and the skin was closed with running intracuticular 4-0 Monocryl and Dermabond glue. The incisions were dressed with Maxorb Ag, Tegaderm and Cavilon skin prep. The patient then awakened and in stable condition was taken to the recovery room. Blood loss during the operation was minimal, about 10 cc. None was replaced intraoperatively. All sponges, instruments and needles were accounted for. No drain was used. No surgical specimen was submitted for histopathology. PLAN: The patient will go home from the outpatient department today and follow up with me in my office next week. She is given a prescription for Ellerbe 5/325, #20, she can take 1 p.o. q.4 hours p.r.n. pain. She is to continue her routine dialysis schedule and continue her regular medications, exercise program, diet, insulin dosage, etc. TRANSINT:[id number] Voice Confirmation ID: [id number] DOCUMENT ID: [id number] DILLON MUSTAFA MD at 1506 CC: PRAVIN ROWAN MD [id number] DICTATION DATE: 04/19/17 1449 COOK ROOM SUPERVISOR: 04/19/17 1704 [facility] [place] 04/19/17 [id number] [place] [address]
== END 2017-04-19 16:45 | disposition home or self-care (01) ==
LOC: D.OPS 07:34
PROVIDERS: Surgery
DX: T82.590A Other mechanical complication of surgically created arteriovenous fistula, initial encounter (principal); E11.22 Type 2 diabetes mellitus with diabetic chronic kidney disease; I12.0 Hypertensive chronic kidney disease with stage 5 chronic kidney disease or end stage renal disease; N18.6 End stage renal disease; Z99.2 Dependence on renal dialysis; Z87.891 Personal history of nicotine dependence; Z01.812 Encounter for preprocedural laboratory examination

== ENCOUNTER 2017-09-20 08:33 | Inpatient (IN) | payer MEDICARE, MEDICAID ==
[~2017-09-20] VITALS: Ht 165.1 cm; Wt 74.3 kg
--- NOTE | ~2017-09-20 | OP ---
PATIENT NAME: JIMBO HO MEDICAL RECORD: [id number] :[birth year] LOCATION:D.M2 D.2109 ADMISSION DATE:09/20/17 SURGEON: DILLON MUSTAFA MD DATE OF OPERATION: 09/20/2017 REFERRING PHYSICIAN: Pravin Rowan MD PREOPERATIVE DIAGNOSES: End-stage renal disease and dependence on hemodialysis and thrombosed left arm AV graft. Also, atherosclerotic peripheral arterial disease with gangrene of the left second toe and gangrenous ulcer of medial left heel. OPERATION PERFORMED: 1. Left upper extremity fistulogram with AngioJet mechanical thrombolysis and TPA pharmacologic thrombolysis. 2. Selective brachial artery arteriogram and balloon angioplasty of severely stenosed long segment of axillary vein and arterial anastomosis. 3. Insertion of the Viabahn 8 mm x 15 cm PTFE covered stent in the venous outflow tract. 4. Amputation of the left second toe including the articular surface of the metatarsal and that wound left open and packed wet to dry with Dakin solution. SURGEON: Dillon Mustafa MD PREOPERATIVE NOTE: Ms. Jimbo Ho is a 52-year-old female with end-stage renal disease, who has thrombosed her left arm arterial venous PTFE graft and also has a necrotic left second toe, which needs amputation. She was brought to the operating room, hopefully for both. PROCEDURE IN DETAIL: Under general anesthesia per Dr. Elmore, she was prepped and draped in sterile manner and the left arm PTFE AV graft was accessed twice in opposing directions and a guidewire passed across the arterial anastomosis after which a selective brachial artery arteriogram was performed, which revealed no evidence of brachial artery lesions or emboli. The arterial anastomosis was thought to be very stenotic. Then, 2 mg of TPA were then infused into the arterial limb of the graft. The guidewire was then passed across the venous outflow tract and a Darrin catheter advanced to the rib margin and then a pullback angiogram done, which subsequently revealed a long stricture of the axillary vein as well as the venous anastomosis. The patient was given heparin intravenously and the AngioJet was used to lyse thrombus within the body of the graft and within the artery and vein adjacent to the anastomoses. Balloon angioplasty was performed of the venous outflow stenosis and the response was inadequate and subsequently a Viabahn 8 mm x 15 cm PTFE covered stent was placed with good angiographic result. The arterial anastomotic plug was freed with a Yvon catheter and balloon angioplasty of the body of the graft as well as the arterial anastomosis was then performed. Excellent flow was restored within the fistula. The patient's heparin was not reversed. The introducer one 6-Tunisian and one 8-Tunisian were removed and hemostasis obtained with a period of direct pressure and a [id number] 4-0 Prolene sutures. Sterile dressings were applied. The patient's foot was then exposed, prepped and draped in sterile manner. The base of the left second toe was ischemic, but not necrotic as was the rest of the toe, which was mummifying. I made an incision at the base of the toe and removed the toe and used a rongeur to remove the articular cartilage of the OPERATIVE REPORT [id number] JIMBO HO underlying metatarsal. The wound was too ischemic to suture and so it was dressed wet to dry, packed with 1/4th strength Dakin solution. The patient had an ischemic ulcer on the medial aspect of the heel, which was clean. The eschar seems to be quite thin and I did not do any debridement of that lesion, but it was dressed. The patient was awakened and in stable condition returned to the recovery room. TRANSINT:[id number] Voice Confirmation ID: [id number] DOCUMENT ID: [id number] DILLON MUSTAFA MD at 1221 CC: PRAVIN ROWAN MD [id number] DICTATION DATE: 10/08/17 1304 RUBBER WORKER: 10/08/17 1500 [facility] IN 09/21/17 [address] [place] [address]
[~2017-09-20 08:33] MED LIST changes: +HYDROCODON-ACE1 EAC7 PO
[2017-09-20 10:09] VITALS: BMI 28.3
[2017-09-20 10:27] LABS: BASOPHILS 0.1 % (0-2); EOSINOPHILS 0.4 % (0-7); HEMATOCRIT 35.5 % (36.0-48.0); HEMOGLOBIN 11.2 g/dL (12-16); IMMATURE GRANULOCYTES 0.2 % (0-5); LYMPHOCYTES 15.3 % (15-50); MCH 29.1 pg (26.0-34.0); MCHC 31.5 g/dL (31.0-37.0); MCV 92.2 fL (80.0-100.0); MEAN PLATELET VOLUME 10.8 fL (7.4-10.4); MONOCYTES 4.9 % (2-11); NEUTROPHILS 79.1 % (40-80); PLATELET COUNT 364 10x3/uL (130-400); RBC 3.85 10x6/uL (4.00-5.40); RDW 17.2 % (11.5-14.5); WBC 10.7 10x3/uL (4.8-10.8)
[2017-09-20 10:35] LABS: APTT 39.5 SECONDS (22.8-39.4); INR 1.08 (0.85-1.17); PROTIME 13.6 SECONDS (11.6-15.0)
[2017-09-20 10:45] LABS: BILIRUBIN - TOTAL 0.4 mg/dL (0.2-1.3); CALCIUM 9.6 mg/dL (8.5-10.1); CARBON DIOXIDE 23.7 mmol/L (21.0-32.0); CREATININE - SERUM 8.8 mg/dL (0.6-1.3); PROTEIN - SERUM 8.4 g/dL (6.4-8.2)
[2017-09-20 10:47] LABS: ANION GAP 19.3 mmol/L (8-16)
[2017-09-20 17:00] VITALS: BP 139/76
[2017-09-20 18:39] VITALS: BP 139/76; BMI 28.3
[2017-09-21 05:09] VITALS: BP 131/56
[2017-09-21 08:29] VITALS: BP 115/59
[2017-09-21 09:54] VITALS: Ht 165.1 cm; Wt 74.3 kg
[2017-09-21] MEDS ORDERED: HYDROCODON-ACE1 EAC7 PO (11:30)
[2017-09-21 15:44] VITALS: BP 156/64
[2017-09-27 16:14] LABS: AEROBE ID Final report (())
== END 2017-09-21 18:08 | disposition home health service (06) | DRG 252 ==
LOC: D.OPS 08:33 → D.M2 16:07 → D.OPS 16:08 → D.M2 16:08
PROVIDERS: Surgery
PROC: 3E03317 Introduction of Other Thrombolytic into Peripheral Vein, Percutaneous Approach (ICD-10-PCS; 2017-09-20)
PROC: B51W1ZZ Fluoroscopy of Dialysis Shunt/Fistula using Low Osmolar Contrast (ICD-10-PCS; 2017-09-20)
PROC: 0Y6S0Z0 Detachment at Left 2nd Toe, Complete, Open Approach (ICD-10-PCS; principal; 2017-09-20 09:45)
PROC: 03C83ZZ Extirpation of Matter from Left Brachial Artery, Percutaneous Approach (ICD-10-PCS; 2017-09-20 09:45)
PROC: 03763DZ Dilation of Left Axillary Artery with Intraluminal Device, Percutaneous Approach (ICD-10-PCS; 2017-09-20 09:45)
PROC: 5A1D70Z Performance of Urinary Filtration, Intermittent, Less than 6 Hours Per Day (ICD-10-PCS; 2017-09-21)
DX: T82.49XA Other complication of vascular dialysis catheter, initial encounter (principal); N18.6 End stage renal disease; I12.0 Hypertensive chronic kidney disease with stage 5 chronic kidney disease or end stage renal disease; E11.52 Type 2 diabetes mellitus with diabetic peripheral angiopathy with gangrene; I96 Gangrene, not elsewhere classified; E11.22 Type 2 diabetes mellitus with diabetic chronic kidney disease; Z99.2 Dependence on renal dialysis; F17.200 Nicotine dependence, unspecified, uncomplicated; D63.1 Anemia in chronic kidney disease

== ENCOUNTER 2019-11-21 12:51 | Inpatient (IN) | payer MEDICARE, MEDICAID ==
[~2019-11-21] VITALS: Ht 165.1 cm; Wt 90.2 kg
--- NOTE | ~2019-11-21 | HEMODYNAMI ---
PATIENT:JIMBO HO MEDICAL RECORD: [id number] : 61 [id number] ADMISSION DATE: 11/21/19 Generatedon:11/23/20199:29 Patient name: JIMBO HO Patient #: [id number] SSN: [id number] : 1965 Date of study: 11/23/2019 Page: Of Hemodynamic Procedure Report Patient Data Patient Demographics Procedure consent was obtained First Name: JIMBO Gender: Female Last Name: MILDRED : 1965 Patient #: [id number] Age: 54 year(s) Race: Black SSN: [id number] Additional ID: [id number] Contact details Address: [address] [place] [address] State: [place] City: [place] Zip code: [address] Past Medical History Allergies: No known allergies Admission Admission Data Admission Date: 11/21/2019 Admission Time: 16:49 Arrival Date: 11/23/2019 Arrival Time: 0:00 Admit Source: Other Insurance Payor: Medicare Room #: D.2112 [facility] #: [id number] Height (in.): 65 BSA: 2 (m2) Height (cm.): 165.1 BMI: 34.18 (kg/m2) Weight (lbs.): 205.43 Weight (kg.): 93.18 Lab Results Lab Result Date: 11/23/2019 Lab Result Time: 0:00 Biochemistry Name Units Result Min Max BUN mg/dl 53 --(----)-* 7 18 CK-MB ng/ml 3.2 --(---*)-- 0 3.6 Creatinine mg/dl 11 --(----)-* 0.6 1.3 eGFR ml/min 5 *-(----)-- 90 120 AM Troponin l ng/ml 1.446 --(----)-* 0 0.06 CBC Name Units Result Min Max Hematocrit % 24.1 *-(----)-- 42 54 Hemoglobin g/dl 24.1 --(----)-* 13.5 17.5 Procedure Procedure Types Cath Procedure Diagnostic Procedure [facility] w/Coronaries Sedation Charges Moderate Sedation up to 15 minutes PCI Procedure Coronary Stent Coronary Stent Initial Hemochron ACT Test Procedure Description Procedure Date Procedure Date: 11/23/2019 Procedure Start Time: 8:59 Procedure End Time: 9:26 Procedure Staff Name Function Vivek Mcdonough MD Performing Physician Denisse Ho RT Monitor Bree Harman RN Nurse Mahnaz Jackson RT Scrub Procedure Data Cath Procedure Fluoroscopy Diagnostic fluoroscopy Total fluoroscopy Time: 3.5 time: 3.5 min min Diagnostic fluoroscopy Total fluoroscopy dose: 811 dose: 811 mGy mGy Contrast Material Contrast Material Type Amount (ml) Isovue 370 102 Entry Location Entry Primary Successful Side Size Upsize Upsize Entry Closure Succes sful Closure Location (Fr) 1 (Fr) 2 (Fr) Remarks Device Remarks Femoral Left 5 Fr 6 Fr Exoseal artery Short Estimated blood loss: 10 ml Diagnostic catheters Device Type Used For End Catheter Placement MULTIPACK JL 4.0 5Fr Procedure catheter MULTIPACK 3DRC 5Fr Procedure catheter MULTIPACK Pigtail 5 Fr Procedure catheter Procedure Complications No complications Procedure Medications Medication Administration Route Dosage Oxygen NC 5 l/min Lidocaine 2% added to field 20 Heparin Flush Bag added to field 2 bags (1000units/500ml NS) 0.9% NaCl I.V. Dextrose 50% I.V. 12.5 g Fentanyl I.V. 50 mcg Heparin Bolus I.V. 4000 units Dobutamine I.V. drip 5 mcg/kg/min (500mg/250ml D5W) Plavix P.O. 75 mg Hemodynamics Rest BSA: 2 (m2) HGB: 24.1 (g/dl) O2 Consumption: Estimated: 172.65 (ml/min) O2 Consu mption indexed: Estimated:86.32 (ml/min/m) Heart Rate: 44 (bpm) Pressure Samples Time Site Value (mmHg) Purpose Heart Use Rate(bpm) 9:06 LV 106/32,29 Snapshot 43 Gradients Valve Time Site Site Mean SEP/DFP Peak To Heart Use 1 2 (mmHg) (sec/min) Peak Rate (mmHg) (bpm) Aortic 9:07 LV AO 43 Snapshots Pre Cath Intra NCS Post Cath Vital Signs Time Heart Resp SPO2 etCO2 NIBP (mmHg) Rhythm Pain Sedation Rate (ipm) (%) (mmHg) Status Level (bpm) 8:48:01 45 15 100 0 122/73(108) SB 0 (11) 10(A) , No pain 8:52:21 43 15 100 0 126/81(111) SB 0 (11) 10(A) , No pain 8:56:39 44 16 100 0 120/77(110) SB 0 (11) 10(A) , No pain 9:01:06 44 14 100 0 133/58(102) SB 0 (11) 10(A) , No pain 9:05:32 43 10 100 0 136/78(98) SB 0 (11) 10(A) , No pain 9:10:00 42 14 100 0 131/73(110) SB 0 (11) 10(A) , No pain 9:14:24 42 12 100 0 110/79(102) SB 0 (11) 10(A) , No pain 9:18:42 42 2 100 0 113/66(88) SB 0 (11) 10(A) , No pain 9:23:00 42 12 100 0 127/75(108) SB 0 (11) 10(A) , No pain Medications Time Medication Route Dose Verified Delivered Reason No lillie Effectiveness by by 8:48:54 Oxygen NC 5 l/min Vivek Giron used for tr ansported [facility] Lauro Harman [facility] lab technician on oxygen from [facility]. 8:49:24 Lidocaine 2% added 20ml vial Vivek Doyle for local tr ansported to [facility] anesthetic on oxygen field MD NG from [facility]. 8:49:32 Heparin Flush added 2 bags Vivek Doyle used for tr ansported Bag to [facility] procedure on oxygen (1000units/500ml field MD NG from [facility]) floor. 8:49:38 0.9% NaCl I.V. kvo ml/hr Vievk Doyle Per physician pt will [facility] have MD NG dialysis today. 8:50:14 Dextrose 50% I.V. 12.5 g Vivek Giron Per physician FS BS 94 [facility] Lauro Harman RN mg/dl prior MD to transport to [facility] lab technician, pt unable to eat until post procedure. 9:00:27 Fentanyl I.V. 50 mcg Vivek Giron for sedation [facility] Lauro Harman RN, MD 9:09:53 Heparin Bolus I.V. 4000 units Vivek Giron for ve rified St Lauro Harman RN anticoagulation with dr MD snowden 9:10:04 Dobutamine I.V. 5 Vivek Giron Per physician fo r low EF, (500mg/250ml drip mcg/kg/min [facility] Lauro Harman RN unit bed D5W) MD ordered. 9:23:36 Plavix P.O. 75 mg Vivek Giron for [facility] Lauro Harman RN antiplatelet therapy Procedure Log Time Note 7:49:53 Informed consent obtained and on chart 7:52:46 Diagnostic Cath Status : Elective 7:56:13 Lab Result : CK-MB 3.2 ng/ml 7:56:13 Lab Result : Creatinine 11 mg/dl 7:56:13 Lab Result : BUN 53 mg/dl 7:56:13 Lab Result : eGFR AM 5 ml/min 7:56:13 Lab Result : Hemoglobin 24.1 g/dl 7:56:13 Lab Result : Troponin l 1.446 ng/ml 7:56:13 Lab Result : Hematocrit 24.1 % 7:57:23 Patient allergic to No known allergies 7:59:26 Patient Height : 65 inches 7:59:30 Patient Weight : 205.43 lbs 7:59:34 Arrival Date: 11/23/2019 12:00:00 AM 7:59:35 Admit Source: Other 7:59:41 Insurance Payor : Medicare 8:00:13 Procedure Status Urgent Heart Cath (IP). 8:00:16 Time tracking: Regular hours (M-F 7:00 - 5:00) 8:00:20 Plan of Care:Hemodynamics will remain stable., Cardiac rhythm will remain stable., Comfort level will be maintained., Respiratory function will remain adequate., Patient/ family verbilizes understanding of procedure., Procedure tolerated without complication., Recovers from procedure without complications.. 8:00:34 H&P Date Dictated: 11/21/2019 Within 30 days and on chart.. 8:00:38 Patient NPO since Midnight. 8:00:40 Patient not . Patient has had hysterectomy. 8:00:46 Lab results completed and on chart. 8:00:50 Stress Test: no; N/A ? 8:03:24 Risk of blood transfusion: 36.4 8:03:27 Risk of RUFINO: 38.4 8:20:13 ACC Patient presents with Stable Angina CCS Anginal Class 2--Slight limitation of ordinary activity. 8:22:42 Bree Harman RN sent for patient. Start room use. 8:36:12 Patient received from Med II to CCL 1 Alert and oriented. Tansferred to table in Supine position. 8:36:13 Warm blankets applied, and ban hugger turned on for patient comfort. 8:36:14 Correct patient and procedure confirmed by team. 8:36:14 ECG and BP/O2 sat monitors applied to patient. 8:36:16 Pre-procedure instructions explained to patient. 8:36:16 Pre-op teaching completed and patient verbalized understanding. 8:36:17 Family unavailable. 8:46:30 Vital chart was started 8:48:21 Is the patient allergic to Iodine/contrast media? No. 8:48:54 Oxygen 5 l/min NC was administered by Bree Harman RN; used for procedure; transported on oxygen from [facility] floor. Verbal order read back and verified. 8:48:56 Was the patient premedicated? Yes 8:48:58 Is patient on blood thinner?Yes 8:49:01 ACC The patient was administered the following blood thiners within the last 24 hours: ACCPlavix 8:49:05 Patient diabetic? Yes. 8:49:07 If diabetic: On Metformin? No 8:49:09 ----Pre-sedation anethsthesia assessment.---- 8:49:11 Previous problem with sedation/anesthesia? No ? 8:49:12 Snore? Yes 8:49:14 Sleep apnea? Unknown 8:49:16 Deviated septum? No 8:49:17 Opens mouth fully? Yes 8:49:23 Sticks out tongue? Yes 8:49:24 Lidocaine 2% 20ml vial added to field was administered by Vivek Mcdonough MD; for local anesthetic; transported on oxygen from [facility] floor. Verbal order read back and verified. 8:49:25 Airway obstruction? No ? 8:49:28 Dentures? No ? 8:49:31 Pre procedure: right dorsailis pedis pulse 1+ Palpable, but thready & weak; easily obliterated 8:49:32 Heparin Flush Bag (1000units/500ml NS) 2 bags added to field was administered by Vivek Mcdonough MD; used for procedure; transported on oxygen from [facility] floor. Verbal order read back and verified. 8:49:34 Patient pain scale 0/10 ?. 8:49:38 0.9% NaCl kvo ml/hr I.V. was administered by Vivek Mcdonough MD; Per physician; pt will have dialysis today. Verbal order read back and verified. 8:49:40 IV patent on arrival in left antecubital with 0.9% NaCl at KVO. 8:49:45 Risk of Mortality: 7.5 8:49:51 Bilateral groins area was prepped with chlora-prep and draped in sterile fashion 8:50:14 Dextrose 50% 12.5 g I.V. was administered by Bree Harman RN; Per physician; FSBS 94 mg/dl prior to transport to nitriles lab technician, pt unable to eat until post procedure. Verbal order read back and verified. 8:50:38 Alarms reviewed by R. N. 8:50:38 Sharps counted by scrub and verified by R.N. 8:50:42 Use device set Femoral Dx 8:50:43 ACIST Syringe (95629) opened to sterile field. 8:50:44 Bag Decanter (2002S) opened to sterile field. 8:50:45 Medline Cath Pack ([id number]) opened to sterile field. 8:50:46 ACIST Hand Control (60089) opened to sterile field. 8:50:46 ACIST Manifold (26666) opened to sterile field. 8:50:47 DIAGNOSTIC Multipack 5Fr catheter set (IL1542) opened to sterile field. 8:50:50 SHEATH 5FR Boyce (QFL611) opened to sterile field. 8:50:51 EMERALD Guide Wire (502-632) opened to sterile field. 8:50:56 Baseline sample Acquired. 8:50:58 Full Disclosure recording started 8:51:02 Rhythm: sinus bradycardia 8:57:09 --------ALL STOP TIME OUT------ 8:57:10 Final Timeout: patient, procedure, and site verified with staff and physician. All members of the team are in agreement. 8:57:11 Bilateral groins site verified by team. 8:57:16 Fire Safety Assessment: A--An alcohol-based skin anteseptic being used preoperatively., C--Open oxygen or nitrous oxide is being used., D--An ESU, laser, or fiber-optic light is being used. 8:57:20 Physical assessment completed. ASA score P 2 - A patient with mild systemic disease as per Vivek Mcdonough MD. 8:57:23 5) <15 or on dialysis Very severe, or end stage kidney failure. 8:57:26 Maximum allowable contrast dose (3.7 X eGFR X 0.75)14 ml. 8:57:31 Sedation plan: IV Moderate Sedation Medication:Versed, Fentanyl 8:59:28 Procedure started. 8:59:36 Local anesthetic to left femerol artery with Lidocaine 2% by Vivek Mcdonough MD.INITIAL ACCESS ONLY 9:00:27 Fentanyl 50 mcg I.V. was administered by Bree Harman RN; for sedation; Verbal order read back and verified. 9:01:43 J WIRE FOR ACCESS OF THE SHEATH. 9:02:04 A 5 Fr sheath was inserted into the Left Femoral artery 9:02:15 A MULTIPACK JL 4.0 5Fr catheter was advanced over the wire and used for Procedure. 9:02:47 LCA angiography performed. 9:02:51 Injector settings: Ml/sec: 3, Volume: 6, 9:04:53 Catheter removed. 9:05:02 A MULTIPACK 3DRC 5Fr catheter was advanced over the wire and used for Procedure. 9:05:29 RCA angiography performed. 9:05:31 Injector settings: Ml/sec: 3, Volume: 6, 9:05:40 ACCDominant side:Left 9:05:45 Catheter removed. 9:05:54 A MULTIPACK Pigtail 5 Fr catheter was advanced over the wire and used for Procedure. 9:06:04 LV gram done using DUNAWAY 9:06:29 Injector settings: Ml/sec: 5, Volume: 15, 9:06:57 LV hemodynamics recorded. 9:07:43 EF : 6 % 9:08:08 Catheter removed. 9:08:09 Proceeding to intervention. 9:08:[address] [facility] PCI 9:08:25 GUIDE 6FR EBU 3.5 catheter ([id number]) opened to sterile field. 9:08:29 SHEATH 6FR Boyce (QXB813) opened to sterile field. 9:08:31 WHISPER 300cm guide wire ([id number]) opened to sterile field. 9:08:33 INFLATOR Merit BasixCompak (TK2264) opened to sterile field. 9::30 Sheath upsized to a 6 Fr Short. 9::38 6 Fr EBU 3.5 guide catheter was inserted over the wire 9::53 Heparin Bolus 4000 units I.V. was administered by Bree Harman RN; for anticoagulation; verified with dr snowden Verbal order read back and verified. 9:10:03 Pre PCI Site: [place] has 90% stenosis. 9:10:04 Dobutamine (500mg/250ml D5W) 5 mcg/kg/min I.V. drip was administered by Bree Harman RN; Per physician; for low EF, unit bed ordered. Verbal order read back and verified. 9:12:01 WHISPER 300 wire advanced. 9:14:17 Inflate balloon Inflation number: 1 A Mozec Rx 3.0 x 14 balloon was prepped and advanced across the Mid CX 90, then inflated to 14 RU for 0:00 (min:sec) . 9:14:35 Balloon removed over the wire. 9:18:33 Place stent Inflation Number: 1 A INTEGRITY RX 3.5 x 15 stent ([id number]) was prepped and advanced across the Mid CX1 . The stent was deployed at 14 RU for 0:00 (min:sec) . 9:19:02 Stent catheter was removed intact over wire. 9:19:03 Wire removed. 9:19:03 Guide catheter removed. 9:19:07 EXOSEAL 6Fr (EX600) opened to sterile field. 9:21:13 Sheath removed intact; hemostasis achieved with Exoseal to the Left Femoral artery. 9:21:18 Procedure ended.(Physican Out) 9:21:22 Fluoroscopy time 03.50 minutes. 9:21:26 Fluoroscopy dose: 811 mGy 9:21:26 Flurop Dose total: 811 9:21:34 Dose Area Product 39557 mGy/cm. 9:21:41 Contrast amount:Isovue 370 102ml. 9:21:44 Maximum allowable dose exceeded? Yes. 9:21:54 Post-op/insertion site Left Femoral artery dressed using a 4 x 4 and Tegaderm. 9:22:01 Post left femerol artery:stable, clean and dry, unstable 9:22:03 Post Procedure Pulses reassessed and unchanged 9:22:07 Post procedure: right dorsailis pedis pulse 1+ Palpable, but thready & weak; easily obliterated. 9:22:10 Post-procedure physical assessment completed. ASA score P 2 - A patient with mild systemic disease as per Vivek Mcdonough MD. 9:22:14 Post procedure rhythm: unchanged. 9:22:17 Estimated blood loss: 10 ml 9:22:48 Post procedure instruction explained to patient.Patient verbalizes understanding. 9:22:49 Patient needs reinforcement of post procedure teaching. 9:23:22 Procedure type changed to Cath procedure, Diagnostic procedure, LHC, [facility] w/Coronaries, Sedation Charges, Moderate Sedation up to 15 minutes, PCI procedure, Coronary Stent, Coronary Stent Initial, Hemochron ACT Test 9:23:29 ACT drawn and resulted at 206 seconds. (normal therapeutic range 180-240 seconds). 9:23:36 Plavix 75 mg P.O. was administered by Bree Harman RN; for antiplatelet therapy; Verbal order read back and verified. 9:23:50 Procedure and supply charges have been captured, reviewed, submitted and are correct. 9:23:54 Procedure Complication : No complications 9:23:57 Vital chart was stopped 9:23:59 [facility] Findings: MVD- PCI performed (see procedure note) 9:24:02 Operative report dictated upon procedure completion. 9:24:03 See physician's report for complete and final results. 9:24:14 ACC-PCI Only Patient was given prescriptions, or instructed by Vivek Mcdonough MD to start/continue the following medications upon discharge: Plavix 9:26:20 Procedure ended. 9:26:20 Full Disclosure recording stopped 9:26:25 End room use (Document Last) 9:28:09 Report given to CVICU. 9:28:13 Patient transfered to CVICU with Bed. Intervention Summary Intervention Notes Time ActionType Lesion and Equipment Action# Pressure Duration Attributes Used 9:14:17 Inflate Mid CX Mozec Rx 3.0 1 14 00:00 balloon x 14 balloon 9:18:33 Place stent Mid CX1 INTEGRITY RX 1 14 00:00 3.5 x 15 stent ([id number]) Device Usage Item Name Manufacture Quantity Catalog Hospital Part Current Mini mal Lot# / Number Charge Number Stock Stock Serial# Code ACIST Acist 1 86325 402820 076344 364400 20 Syringe Medical (89078) Systems Inc Bag Decanter Microtek 1 2001S 075076 20137 077553 5 () Medical Inc. Medline Cath Medline 1 [id number] 461753 46292 637191 5 Pack ([id number]) ACIST Hand Acist 1 56794 781619 677536 469162 5 Control Medical (40844) Systems Inc ACIST Acist 1 40060 489302 579703 606139 5 Manifold Medical (39174) Systems Inc DIAGNOSTIC Cardinal 1 AJ9973 863191 95322 712462 30 Multipack Health 5Fr catheter set (PO1739) SHEATH 5FR Terumo 1 AQZ547 936693 682883 690512 5 Boyce (DEZ193) EMERALD Cardinal 1 502-455 249280 879268 683070 5 Guide Wire Health (502-455) MULTIPACK JL Cardinal 1 399214 5 4.0 5Fr Health catheter MULTIPACK Cardinal 1 890559 5 3DRC 5Fr Health catheter MULTIPACK Cardinal 1 692643 5 Pigtail 5 Fr Health catheter GUIDE 6FR Medtronic 1 [id number] 708415 55567 545745 3 EBU 3.5 catheter ([id number]) SHEATH 6FR Terumo 1 TZF819 105658 447549 000210 40 Boyce (LFP646) WHISPER Martin 1 [id number] 516982 852642 266254 5 300cm guide Vascular wire ([id number]) INFLATOR Merit 1 XW4615 941830 347345 488899 15 Merit Medical BasixCompak (OH8008) Mozec Rx 3.0 Cardinal 1 EXR54906 675841 672663616 654837 5 UMOD90 x 14 balloon Health INTEGRITY RX Medtronic 1 [id number] 539517 774065 401932 5 [id number] 3.5 x 15 stent ([id number]) EXOSEAL 6Fr Cardinal 1 EX600 236638 357018 056460 10 (EX600) Health Signature Audit Cope Stage Time Signature Unsigned Intra-Procedure 11/23/2019 Denisse Ho 9:28:31 AM RT(R) Intra-Procedure 11/23/2019 Bree Harman RN 9:28:48 AM Intra-Procedure 11/23/2019 Vivek Yeager 9:29:02 AM Lauro NG [facility] [address] [place] [address]
[2019-11-21] MEDS ORDERED: NEURONTIN600 MG PO (12:58)
[2019-11-21] MEDS ORDERED: LASIX40 MG PO (12:58)
[2019-11-21] MEDS ORDERED: LEVEMIR IN100 UNITS/ SC (13:00)
[2019-11-21] MEDS ORDERED: METOPROLOL TART50 MG PO (13:01)
[2019-11-21] MEDS ORDERED: COZAAR25 MG PO (13:01)
[2019-11-21] MEDS ORDERED: LYRICA50 MG PO (13:02)
[2019-11-21] MEDS ORDERED: ZOFRAN4 MG PO (13:02)
[2019-11-21] MEDS ORDERED: RENVELA800 MG PO (13:03)
[2019-11-21] MEDS ORDERED: CARAFATE1 G PO (13:03)
[2019-11-21] MEDS ORDERED: NORVASC5 MG PO (13:04)
[2019-11-21 13:12] VITALS: BP 176/75
[2019-11-21 14:58] LABS: CALC OSMOLALITY 289 mosm/kg (275-300); CALCIUM 8.6 mg/dL (8.5-10.1); CARBON DIOXIDE 27.4 mmol/L (21.0-32.0); CHLORIDE - SERUM 104 mmol/L (98-107); CREATININE - SERUM 10.3 mg/dL (0.6-1.3); GLUCOSE 73 mg/dL (74-106); POTASSIUM - SERUM 3.9 mmol/L (3.5-5.1); SODIUM 140 mmol/L (136-145); UREA NITROGEN 46 mg/dL (7-18); eGFR NON AFRICAN AMERICAN 4 mL/min (90-120)
[2019-11-21 15:05] LABS: INR 1.25 (0.85-1.17); PROTIME 15.6 SECONDS (11.6-15.0)
[2019-11-21 15:06] LABS: APTT 36.7 SECONDS (22.8-39.4)
--- NOTE | 2019-11-21 15:10 | NUR ---
PT REPOSITIONED IN BED FOR COMFORT. BRIEF CHANGED, AND ABSORBANT PAD PLACED UNDER PATIENT. PT DENIES FURTHER NEEDS AT THIS TIME. RESPIRATIONS ARE EVEN AND UNLABORED. NO DISTRESS NOTED.VSS. WILL CONTINUE TO MONITOR.
[2019-11-21 15:11] VITALS: BP 189/72
[2019-11-21 15:14] LABS: BASOPHILS 0.2 % (0-2); EOSINOPHILS 0.4 % (0-7); HEMATOCRIT 27.2 % (36.0-48.0); HEMOGLOBIN 8.3 g/dL (12-16); IMMATURE GRANULOCYTES 0.5 % (0-5); LYMPHOCYTES 25.1 % (15-50); MCH 30.9 pg (26.0-34.0); MCHC 30.5 g/dL (31.0-37.0); MCV 101.1 fL (80.0-100.0); MEAN PLATELET VOLUME 11.1 fL (7.4-10.4); MONOCYTES 6.3 % (2-11); NEUTROPHILS 67.5 % (40-80); RBC 2.69 10x6/uL (4.00-5.40); RDW 18.9 % (11.5-14.5); WBC 8.5 10x3/uL (4.8-10.8)
[2019-11-21 15:15] LABS: PLATELET COUNT 223 10x3/uL (130-400)
[2019-11-21 15:22] LABS: ALKALINE PHOSPHATASE 126 U/L (30-120); ALT (SGPT) 36 U/L (10-68); BILIRUBIN - TOTAL 0.43 mg/dL (0.2-1.3); CREATINE KINASE 87 UL (21-215); MAGNESIUM - SERUM 2.2 mg/dL (1.8-2.4); PROTEIN - SERUM 7.1 g/dL (6.4-8.2)
[2019-11-21 15:27] LABS: TROPONIN-I 0.806 ng/mL (0.000-0.060)
[2019-11-21 15:56] LABS: ALBUMIN 3.4 g/dL (3.4-5.0); CKMB 5.9 U/L (0.0-3.6)
[2019-11-21 16:03] VITALS: BP 143/53
--- NOTE | 2019-11-21 17:10 | NUR ---
REPORT CALLED TO MCKENZIE AT THIS TIME.
[2019-11-21 18:10] VITALS: BP 182/83; BMI 34.1
[2019-11-21 20:00] VITALS: BP 146/68
[2019-11-21 20:38] LABS: CKMB 4.8 U/L (0.0-3.6); CREATINE KINASE 79 UL (21-215)
[2019-11-21 20:40] LABS: TROPONIN-I 1.286 ng/mL (0.000-0.060)
--- NOTE | 2019-11-21 22:14 | NUR ---
INITIAL ROUNDS COMPLETED AT 1915 HRS. PT DENIED ANY DISCOMFORT. ASSESSMENT COMPLETED AT 1999 HRS. VSS. SR PER CM HR 61. PT ALERT AND ORIENTED TO PERSON,PLACE AND TIME. SMITH. IV TO L JUGULAR SL. LUNGS DIMINISHED IN BASES BILAT. L AVF WITH GOOD BRUIT AND THRILL. ABD SOFT WITH ACTIVE BS NOTED. BILAT BKA'S NOTED. SPOKE WITH SISTER PAULA WITH PT'S [id number]. UPDATE GIVEN. PM FSBS 110. LANTUS HELD NPO AFTER MIDNIGHT UNTIL SEEN BY CARDIOLOGY. PM MEDS GIVEN. PT CURRENTLY WATCHING TV. SR UP X2, CALL LIGHT WITHIN REACH AND BED ALARM ON.
[2019-11-22] VITALS: BP 127/59
--- NOTE | 2019-11-22 00:08 | NUR ---
EKG DONE. PT DENIES ANY DISCOMFORT. SR UP X2, CALL LIGHT WITHIN REACH AND BED ALARM ON.
[2019-11-22 01:41] LABS: BASOPHILS 0.1 % (0-2); EOSINOPHILS 1.9 % (0-7); HEMATOCRIT 24.1 % (36.0-48.0); IMMATURE GRANULOCYTES 0.4 % (0-5); LYMPHOCYTES 38.7 % (15-50); MCH 30.7 pg (26.0-34.0); MCHC 30.7 g/dL (31.0-37.0); MEAN PLATELET VOLUME 11.3 fL (7.4-10.4); MONOCYTES 7.7 % (2-11); NEUTROPHILS 51.2 % (40-80); PLATELET COUNT 234 10x3/uL (130-400); RBC 2.41 10x6/uL (4.00-5.40); RDW 17.4 % (11.5-14.5)
[2019-11-22 01:42] LABS: HEMOGLOBIN 7.4 g/dL (12-16)
[2019-11-22 02:17] LABS: CALC OSMOLALITY 298 mosm/kg (275-300); CALCIUM 8.3 mg/dL (8.5-10.1); CARBON DIOXIDE 26.4 mmol/L (21.0-32.0); CHLORIDE - SERUM 106 mmol/L (98-107); CKMB 3.2 U/L (0.0-3.6); CREATINE KINASE 73 UL (21-215); GLUCOSE 95 mg/dL (74-106); POTASSIUM - SERUM 4.4 mmol/L (3.5-5.1); SODIUM 143 mmol/L (136-145); UREA NITROGEN 53 mg/dL (7-18); eGFR NON AFRICAN AMERICAN 4 mL/min (90-120)
[2019-11-22 02:18] LABS: TROPONIN-I 1.446 ng/mL (0.000-0.060)
--- NOTE | 2019-11-22 02:59 | NUR ---
PT RESTING WITH EYES CLOSED. RESP EVEN AND REGULAR. SR UP X2, CALL LIGHT WITHIN REACH AND BED ALARM ON.
[2019-11-22 04:00] VITALS: BP 131/60
--- NOTE | 2019-11-22 04:37 | NUR ---
PT RESTING WITH EYES CLOSED. RESP EVEN AND REGULAR. SR UP X2, CALL LIGHT WITHIN REACH.
--- NOTE | 2019-11-22 06:03 | NUR ---
Dima CARRANZA APRN INFORMED OF PT'S CURRENT H&H, TROPONIN. NEW ORDERS RECEIVED AND NOTED.
--- NOTE | 2019-11-22 06:49 | NUR ---
VSS THROUGHOUT NIGHT SB WITH 1ST DEGREE AV BLOCK PER CM. NPO UNTIL SEEN BY CARDIOLOGY. NEEDS MET; WILL CONTINUE TO MONITOR.
--- NOTE | 2019-11-22 07:41 | NUR ---
PT LAYING SUPINE, RR EVEN AND UNLABORED. NO DISTRESS NOTED. CALL LIGHT WITHIN REACH. BED IN LOWEST POSITION. ATTEMPTED TO FLUSH IV RO RIGHT JUGUALR WITH NO SUCCESS, WILL ATTEMPT A PERIPHERAL IV. WILL CONTINUE TO MONITOR.
[2019-11-22 08:31] VITALS: BP 147/48
--- NOTE | 2019-11-22 08:49 | NUR ---
UNABLE TO OBTAIN IV ACCESS. FIONA, RENAL MATERIAL HANDLING TECHNICIAN PAGED. STATED THAT SHE COULD RECIEVE BLOOD TOMORROE THROUGH DIALYSIS.
--- NOTE | 2019-11-22 10:17 | NUR ---
I have reviewed this patient and I concur with the Shift Assessment completed by the Licensed Practical Nurse today this shift.
[2019-11-22 13:20] VITALS: BP 120/45
[2019-11-22 13:49] LABS: CKMB 1.8 U/L (0.0-3.6); CREATINE KINASE 55 UL (21-215); TROPONIN-I 1.407 ng/mL (0.000-0.060)
--- NOTE | 2019-11-22 16:00 | NUR ---
SPOKE WITH DR. MUSTAFA. HE WANTED ME TO FLUSH IV TO LEFT JUGULAR WITH A TB SYRINGE. WAS ABLE TO FLUSH WITH 3ML SYRINGE; HOWEVER WAS NOT ABLE TO FLUSH WITH A 10ML SYRINGE. STATED HE WANTED THE CVL HEPARIN LOCKED WITH 1000UNITS/1ML HEPARIN. DR. MUSTAFA WAS INFORMED THAT THIS WAS A PERIPHERAL IV. HE THEN WANTED A CHEST XRAY TO CONFIRM THE PLACEMENT. RECIEVED NURSING MESSAGE WITH ORDERS FOR CVL. DR. MUKHERJEE WALKING PAST OVERHEARD AND OFFERED TO PLACE CVL FOR PT. HE CALLED AND SPOKE WITH DR. MUSTAFA. CVL PLACED TO RIGHT JUGULAR. PT TOLERATED PROCEDURE WELL. ORDERS RECIEVED FROM DR. MUKHERJEE TO LET PT EAT. CALL LIGHT WITHIN REACH. TRAY AND DRINK DELIVERED PER REQUEST. DENIES FURTHER NEEDS OR PAIN AT THIS TIME. WILL CONTINUE TO MONITOR.
[2019-11-22 18:29] VITALS: BP 118/44
--- NOTE | 2019-11-22 21:13 | NUR ---
LANTUS HELD. FSBS 89. PATIENT REFUSED DUE TO NPO AFTER MN. COMPLAINTS OF PAIN TO RIGHT NECK FROM CL INSERTION. NORCO 5MG GIVEN PER REQUEST. CL IN REACH
[2019-11-23] VITALS (24 sets, daily range): BP systolic 98–175; BP diastolic 4–85; Ht 165.1 cm; Wt 90.2 kg
--- NOTE | 2019-11-23 06:07 | NUR ---
I have reviewed this patient and I concur with the Shift Assessment completed by the Licensed Practical Nurse today this shift.
[2019-11-23 06:18] LABS: BASOPHILS 0.1 % (0-2); EOSINOPHILS 3.6 % (0-7); HEMATOCRIT 22.3 % (36.0-48.0); IMMATURE GRANULOCYTES 0.1 % (0-5); LYMPHOCYTES 31.9 % (15-50); MCH 30.6 pg (26.0-34.0); MCHC 30.5 g/dL (31.0-37.0); MCV 100.5 fL (80.0-100.0); MEAN PLATELET VOLUME 11.2 fL (7.4-10.4); MONOCYTES 6.3 % (2-11); PLATELET COUNT 229 10x3/uL (130-400); RBC 2.22 10x6/uL (4.00-5.40); RDW 17.9 % (11.5-14.5); WBC 6.9 10x3/uL (4.8-10.8)
[2019-11-23 06:19] LABS: HEMOGLOBIN 6.8 g/dL (12-16)
[2019-11-23 06:38] LABS: ANION GAP 13.4 mmol/L (8-16); CALCIUM 7.9 mg/dL (8.5-10.1); CARBON DIOXIDE 27.1 mmol/L (21.0-32.0); CREATININE - SERUM 12.5 mg/dL (0.6-1.3); POTASSIUM - SERUM 4.5 mmol/L (3.5-5.1)
--- NOTE | 2019-11-23 07:36 | NUR ---
REPORT RECIEVED. PT LYING ON BACK. RR EVEN AND UNLABORED ON 5L NC. PT HAS A L JUGLAR PIV THAT IS NOT WORKING AND A RIGHT JUGULAR CVL, ALL BUT THE WHITE PORT FLUSH. SHE IS NPO FOR A HEART CATH TODAY. BED LOCKED AND IN LOWEST POSITION, CALL LIGHT WITHIN REACH. WILL CTM
[2019-11-23 09:25] LABS: LDL-HDL RATIO 1.1 ratio (1.5-3.5)
--- NOTE | 2019-11-23 10:48 | NUR ---
0945 PT RECIEVED FROM EMBROIDERY PATTERNMAKER, EASY TO AROUSE AND ANSWERSQUESTIONS APPROPRIATELY, VSS, DENIES PAIN, R IJ CVL WITH DOBUTAMINE 5MCG INFUSING, WHITE PORT DOES NOT FLUSH PER NARESH RN, LEJ PIV ALSO NOT PATENT AND DCD TIP INTACT, L ARM FISTULA THRILL AND BRUIT PATENT, WILL RECIEVE DIALYSIS LATER TODAY AND PER NURSE SYLVIA ALBA TO INFUSE PRBCS, SPOKE WITH DIALYSIS NURSE AND OK TO GIVE BP MEDICATIONS, R GROIN SITE SOFT TO TOUCH, NO SIGNS OF BLEEDING
--- NOTE | 2019-11-23 11:22 | CN ---
PATIENT NAME:JIMBO LEVY MEDICAL RECORD: [id number] : 61 LOCATION:JENS.CV08 ADMIT DATE: 11/21/19 ACCOUNT: [id number] CONSULTING PHYSICIAN: VLAD STRANGE MD REFERRING PHYSICIAN: PRAVIN GOETZ MD DATE OF CONSULTATION: 11/22/2019 HISTORY OF PRESENT ILLNESS: A 54-year-old female with end-stage renal disease, hypertension, hyperlipidemia as well as diabetes mellitus, admitted with acute coronary syndrome, progressing to NSTEMI. Symptomatology began approximately a week prior to admission was found to be anemic with a hemoglobin 7.4. She is on dialysis with hemoglobin typically in the 10 range. PAST MEDICAL HISTORY: Otherwise includes, 1. History of hypertension. 2. Hyperlipidemia. 3. Diabetes mellitus. MEDICATIONS: Typically include Plavix 75 every day, atorvastatin 10 every day, clonidine 0.2 b.i.d., and Imdur 60 every day. hydralazine 100 every day, losartan 25 every day, metoprolol 25 b.i.d., amlodipine 5 every day, Neurontin 600 mg t.i.d., Lyrica 50 b.i.d., Lasix 40 every day, Carafate 1 g a.c. and at bedtime, Amaryl 4 mg q.a.m., and insulin 4 units at bedtime. SOCIAL HISTORY: Lives in [place]. Smokes about a pack a day, nondrinker. She takes care of her ADLs. Does not exercise on a regular basis. REVIEW OF SYSTEMS: The patient reports easy bruising but reports no swollen glands. The patient reports no fever, no night sweats, no significant weight gain, no significant weight loss. No significant exercise tolerance. The patient reports no dry eyes, no irritation, no vision change. Patient reports no difficulty hearing and no ear pain. Patient reports no frequent nose bleeds or nose and sinus problems. Patient reports on arm pain on exertion. No shortness of breath while lying down. No history of heart murmur. Patient reports no cough, no wheezing or coughing up blood. Patient reports no abdominal pain, no vomiting. Normal appetite. No diarrhea and not vomiting blood. No nausea and no constipation. Patient reports no incontinence. No difficulty urinating. No hematuria. No increased frequency. Patient reports no muscle aches. No weakness, no arthralgias, no back pain. No swelling of the extremities. Patient reports no abnormal mole, no jaundice, no rashes. Reports no loss of consciousness. No weakness and no numbness. No seizures, dizziness, or headaches. The patient reports no depression, no sleep disturbance, feeling safe in a relationship and no alcohol abuse. Patient reports on fatigue. Reports no runny nose or sinus pressure. No itching, no hives, and no frequent sneezing. PHYSICAL EXAMINATION: GENERAL: Pleasant female in no acute distress, appears stated age. VITAL SIGNS: Blood pressure 147/48, pulse 50 and regular. HEENT: Normocephalic, atraumatic. NECK: No bruits noted. HEART: Regular, II/ systolic ejection murmur. LUNGS: Fairly good air excursion. ABDOMEN: Soft, nontender. EXTREMITIES: Pulses 2+ with no edema. CONSULT REPORT [id number] JIMBO LEVY DIAGNOSTIC DATA: EKG shows nonspecific ST-T changes. IMPRESSION: NSTEMI, questionable type 1 versus type 2. Given history, we will plan on angiography intervention based on above. TRANSINT:[id number] Voice Confirmation ID: [id number] DOCUMENT ID: [id number] VLAD STRANGE MD at 1122 CC: [id number] DICTATION DATE: 11/22/19 1238 TRACK COACH: 11/22/19 2321 ADM IN [facility] [address] [place] [address]
--- NOTE | 2019-11-23 16:03 | NUR ---
CATH SITE CONTINUES SOFT, NO SIGNS OF BLEEDING, VSS, DENIES PAIN AND ALL NEEDS, DIALYSIS NURSE AT BEDSIDE SETTING UP EQUIPMENT, WILL GET PRBCS WHEN READY
--- NOTE | 2019-11-23 17:29 | NUR ---
PT ATE 75% DINNER
--- NOTE | 2019-11-23 18:45 | NUR ---
HEMODIALYSIS TREATMENT COMPLETED, 2 UNITS OF PRBC'S ADMINISTERED, NET FLUID REMOVAL OF 1300ML. PATIENT TOLERATED TREATMENT EXTREMELY WELL, COULD HAVE PROBABLY GOTTEN MORE UF IF I HAD SET UF GOAL HIGHER AT START OF TREATMENT.
--- NOTE | 2019-11-23 19:30 | NUR ---
PT A/OX4, VOICES NEEDS, LUNGS CLEAR, O2 @ 3L VIA N/C, LEFT AV FISTULA WITH BRUIT PRESENT, BILAT AMPUTEE, RIGHT IJ CVL INTACT WITH DOBUTAMINE @ 5 MCG AND D10 @ 30 CC/HR, VITALS STABLE
[2019-11-24] VITALS (12 sets, daily range): BP systolic 139–167; BP diastolic 43–65
--- NOTE | 2019-11-24 | NUR ---
PT SLEEPING WITH NO DISTRESS, WILL CONT TO MONITOR
--- NOTE | 2019-11-24 03:45 | NUR ---
DOBUTAMINE GTT EMPTY, UNABLE TO FIND ORDER FOR GTT, CALLED DR ARREAGA, RECIEVED ORDER TO KEEP PT ON GTT UNTIL AM
[2019-11-24 04:53] LABS: BASOPHILS 0 % (0-2); EOSINOPHILS 3.5 % (0-7); IMMATURE GRANULOCYTES 0.2 % (0-5); LYMPHOCYTES 21.5 % (15-50); MCH 28.7 pg (26.0-34.0); MCHC 31.7 g/dL (31.0-37.0); MEAN PLATELET VOLUME 10.9 fL (7.4-10.4); MONOCYTES 6.6 % (2-11); NEUTROPHILS 68.2 % (40-80); PLATELET COUNT 196 10x3/uL (130-400); RDW 22.7 % (11.5-14.5); WBC 8.2 10x3/uL (4.8-10.8)
[2019-11-24 04:55] LABS: HEMATOCRIT 27.8 % (36.0-48.0); HEMOGLOBIN 8.8 g/dL (12-16); MCV 90.6 fL (80.0-100.0); RBC 3.07 10x6/uL (4.00-5.40)
[2019-11-24 05:02] LABS: ANION GAP 7.7 mmol/L (8-16); CALCIUM 7.6 mg/dL (8.5-10.1); CARBON DIOXIDE 30.8 mmol/L (21.0-32.0)
[2019-11-24 05:15] LABS: CREATININE - SERUM 7.7 mg/dL (0.6-1.3); POTASSIUM - SERUM 3.5 mmol/L (3.5-5.1)
--- NOTE | 2019-11-24 08:34 | NUR ---
spoke with moon in pharmacy, awaiting enema
--- NOTE | 2019-11-24 09:26 | NUR ---
0700 PT RECIEVED ALERT AND ORIENTED VSS DENIES PAIN AND ALL NEEDS, ATTEMPTED TO HAVE BM ON BEDPAN WITHOUT SUCCESS, SEE SHIFT ASSESSMENT FOR DETAILS 0900 ATE 75% BREAKFAST, TOOK AM MEDS WITHOUT DIFFICULTY, SPOKE WITH CARMEN BRASWELL TO SEND TO FLOOR
--- NOTE | 2019-11-24 13:52 | NUR ---
SPOKE TO [facility] TO ENTER [facility] DIALYSIS ORDERS.
--- NOTE | 2019-11-24 14:27 | NUR ---
1200 ATE 75% LUNCH 1330 CHG BATH DONE 1415 SMALL LOOSE BM NOTED
--- NOTE | 2019-11-24 14:35 | NUR ---
REPORT CALLED TO ROSE PHELPS TO TRANSFER TO 2114 WHEN ROOM CLEAN
--- NOTE | 2019-11-24 16:03 | NUR ---
TRANSFER FROM CVICU BY BED. CALL LIGHT IN REACH. WILL CONT. PLAN OF CARE.
--- NOTE | 2019-11-24 19:58 | NUR ---
REPORT RECEIVED AND ROUNDING COMPLETE. PATIENT LAYING IN BED IN LOW FOLWERS POSITION, EYES CLOSED BREATHING EVEN AND UNLABORED, NO DISTRESS NOTED. RIGHT IJ RUNNING FLUIDS AT THIS TIME. BED ALARM ON ( BILATERAL BKA) CALL LIGHT WITHIN REACH AND BED LOWEST LOCKED POSITION.
[2019-11-25 04:34] VITALS: BP 149/49
[2019-11-25 06:50] LABS: ANION GAP 12.5 mmol/L (8-16); CALCIUM 8.2 mg/dL (8.5-10.1); CARBON DIOXIDE 26.6 mmol/L (21.0-32.0); CREATININE - SERUM 9.4 mg/dL (0.6-1.3); PHOSPHOROUS 4.6 mg/dL (2.5-4.9); POTASSIUM - SERUM 3.1 mmol/L (3.5-5.1)
[2019-11-25 06:52] LABS: BASOPHILS 0.1 % (0-2); EOSINOPHILS 3.5 % (0-7); HEMATOCRIT 28.8 % (36.0-48.0); HEMOGLOBIN 9.2 g/dL (12-16); IMMATURE GRANULOCYTES 0.3 % (0-5); MCH 28.7 pg (26.0-34.0); MCHC 31.9 g/dL (31.0-37.0); MCV 89.7 fL (80.0-100.0); MONOCYTES 6.6 % (2-11); NEUTROPHILS 68.5 % (40-80); PLATELET COUNT 205 10x3/uL (130-400); RBC 3.21 10x6/uL (4.00-5.40); RDW 21.7 % (11.5-14.5)
[2019-11-25 09:00] VITALS: BP 142/52
[2019-11-25 11:00] VITALS: BP 168/73
--- NOTE | 2019-11-25 11:30 | NUR ---
UP TO CHAIR WITH PT ASSIST. CALL LIGHT IN REACH.
--- NOTE | 2019-11-25 13:27 | NUR ---
Nutrition Follow-up: Pt reports decreased appetite since admit. Agreed to try Nepro. Denies N/V. Reports enema with resulting BM yesterday. HD today. Diet: Renal ADA Wt: 202.8# (11/24); 205# (11/20) Labs noted: Na 133, K+ 3.1, Glu 107, Ca 8.2, PO4 4.6 Meds noted: Miralax, Dulcolax, Lantus, Lasix, Carafate, Renagel -Encourage PO intake and honor food preferences within diet restrictions. -Nepro sent with lunch today for pt trial. -Monitor wt. -RD following.
--- NOTE | 2019-11-25 14:30 | NUR ---
DRSG CHANGED TO CVL SITE. WILL CONT. PLAN OF CARE.
[2019-11-25 15:00] VITALS: BP 162/64
--- NOTE | 2019-11-25 16:07 | OP ---
PATIENT NAME: JIMBO LEVY MEDICAL RECORD: [id number] :61 LOCATION:D.M2 D.2115 ADMISSION DATE:11/21/19 SURGEON: LAZARO MUKHERJEE MD DATE OF OPERATION: 11/22/2019 PREOPERATIVE DIAGNOSES: 1. Anemia requiring transfusion 2. Coronary artery disease. 3. Non-ST elevation myocardial infarction 4. End-stage renal disease. POSTOPERATIVE DIAGNOSES: 1. Anemia requiring transfusion 2. Coronary artery disease. 3. Non-ST elevation myocardial infarction 4. End-stage renal disease. PROCEDURE: Insertion of right internal jugular central venous catheter. SURGEON: Lazaro Mukherjee MD RECRUITING MANAGER: None. BLOOD LOSS: Minimal. ANESTHESIA: Local. The entire procedure was performed with the presence of a female nurse. The risks, possible complications and alternatives to the procedure were explained to the patient. A consent form was signed. OPERATIVE COURSE: I interrogated the patient's neck with the hand-held ultrasound. There was a large compressible right internal jugular vein. The patient was positioned in Trendelenburg position. The entire procedure was performed with the presence of a female nurse. The right neck was sterilely prepped and draped. Local anesthetic was used to infiltrate the skin and subcutaneous tissues at the base of the right neck. The right internal jugular vein was percutaneously accessed in an antegrade fashion. A guidewire passed easily. A small skin brenda was accomplished. A vessel dilator was used to dilate a subcutaneous tract. A 16-cm triple lumen central venous catheter was inserted to the hub. It was sutured in place times 3. All lumens flushed easily and aspirated dark, nonpulsatile blood. A stat portable chest x-ray is pending. It is okay to use a central line. TRANSINT:[id number] Voice Confirmation ID: [id number] DOCUMENT ID: [id number] OPERATIVE REPORT [id number] JIMBO LEVY ROBERT MD at 1607 CC: [id number] DICTATION DATE: 11/22/19 1608 INVESTMENT ASSOCIATE: 11/23/19 0310 ADM IN [place] [address] [place] [address]
--- NOTE | 2019-11-25 18:18 | NUR ---
LEAVING FOR DIALYSIS BY BED.
[2019-11-25 20:00] VITALS: BP 155/54
[2019-11-26] VITALS: BP 173/59
[2019-11-26 04:00] VITALS: BP 180/73
[2019-11-26 06:35] LABS: BASOPHILS 0.3 % (0-2); EOSINOPHILS 5.1 % (0-7); HEMOGLOBIN 9.9 g/dL (12-16); IMMATURE GRANULOCYTES 0.1 % (0-5); LYMPHOCYTES 19.7 % (15-50); MCH 28.4 pg (26.0-34.0); MCHC 30.9 g/dL (31.0-37.0); MEAN PLATELET VOLUME 10.5 fL (7.4-10.4); MONOCYTES 6.3 % (2-11); NEUTROPHILS 68.5 % (40-80); PLATELET COUNT 192 10x3/uL (130-400); RBC 3.48 10x6/uL (4.00-5.40); RDW 21.1 % (11.5-14.5); WBC 7.6 10x3/uL (4.8-10.8)
[2019-11-26 06:36] LABS: ANION GAP 11.6 mmol/L (8-16); CALCIUM 8.7 mg/dL (8.5-10.1); CARBON DIOXIDE 25.9 mmol/L (21.0-32.0); CREATININE - SERUM 7.7 mg/dL (0.6-1.3); POTASSIUM - SERUM 3.5 mmol/L (3.5-5.1)
[2019-11-26 09:00] VITALS: BP 151/67
[2019-11-26 11:00] VITALS: BP 158/75
--- NOTE | 2019-11-26 13:02 | NUR ---
TELEMETRY SR 60.
--- NOTE | 2019-11-26 13:26 | NUR ---
PT HAS A LARGE CALLOUS ON HER LEFT STUMP. IT DOES NOT DRAIN OR HAVE AN ODOR AND IT'S NOT RED OR EDEMATOUS. SHE DOES SAY IT IS TENDER. WOUND CARE COVERED IT WITH A MEPILEX CUSHIONED DRESSING FOR PROTECTION AND COMFORT. PT STATES SHE WEARS HER PROSTHESISES DAILY WHEN SHE'S AT HOME. IT APPEARS THAT THE LEFT ONE HAS BEEN RUBBING THIS AREA AND HAS CAUSED A CALLOUS. RECOMMENDED SHE HAVE HER PROSTEHESIS REEVALUATED FOR SIZE AND FIT. SHE STATED SHE WILL NEED A WRITTEN ORDER FROM HER PHYSICIAN IN ORDER TO HAVE IT CHECKED. PRIMARY NURSE WAS NOTIFIED AND A NOTE WAS PLACED ON CHART FOR PHYSICIAN.
[2019-11-26 15:00] VITALS: BP 161/70
--- NOTE | 2019-11-26 19:31 | NUR ---
RECEIVED BEDSIDE REPORT. PATIENT IS ALERT AND ORIENTED, RESTING COMFORTABLY IN BED. RESPIRATIONS ARE EVEN AND UNLABORED. NO S/S OF DISTRESS. NO C/O PAIN. CALL LIGHT WITHIN REACH. WILL CPOC.
[2019-11-26 21:11] VITALS: BP 148/62
[2019-11-27 00:32] VITALS: BP 154/61
[2019-11-27 04:51] VITALS: BP 163/52
[2019-11-27 05:00] LABS: BASOPHILS 0.1 % (0-2); EOSINOPHILS 4.3 % (0-7); HEMATOCRIT 30.3 % (36.0-48.0); HEMOGLOBIN 9.6 g/dL (12-16); IMMATURE GRANULOCYTES 0.3 % (0-5); LYMPHOCYTES 26.9 % (15-50); MCH 28.8 pg (26.0-34.0); MCHC 31.7 g/dL (31.0-37.0); MEAN PLATELET VOLUME 10.9 fL (7.4-10.4); MONOCYTES 4.3 % (2-11); NEUTROPHILS 64.1 % (40-80); PLATELET COUNT 208 10x3/uL (130-400); RBC 3.33 10x6/uL (4.00-5.40); RDW 20.7 % (11.5-14.5); WBC 7.2 10x3/uL (4.8-10.8)
[2019-11-27 05:24] LABS: ANION GAP 10.8 mmol/L (8-16); CALCIUM 8.5 mg/dL (8.5-10.1); CARBON DIOXIDE 28.9 mmol/L (21.0-32.0); CREATININE - SERUM 9.3 mg/dL (0.6-1.3); PHOSPHOROUS 3.6 mg/dL (2.5-4.9); POTASSIUM - SERUM 3.7 mmol/L (3.5-5.1)
[2019-11-27 09:00] VITALS: BP 179/68
--- NOTE | 2019-11-27 10:00 | NUR ---
TELEMETRY SR. OOB WITH PT ASSIST. CALL LIGHT IN REACH.
--- NOTE | 2019-11-27 10:46 | NUR ---
LEAVING FOR DIALYSIS BY BED.
--- NOTE | 2019-11-27 11:51 | MORECARE ---
CASE MANAGEMENT DISCHARGE SUMMARY PATIENT: JIMBO LEVY UNIT: [id number] ADM DATE: 11/21/19 AGE: 54 : 61 SEX: F ROOM/BED: D.7885 AUTHOR: CAMDEN WAGONER PHYSICIAN: REFERRING PHYSICIAN: PRAVIN GOETZ MD DATE OF SERVICE: 11/27/19 Discharge Plan Patient Name: JIMBO LEVY [facility] [facility] 1965 Planned Disposition: Senior Living Facility Anticipated Discharge Date: Discharge Date: Expected LOS: Initial Reviewer: [email or web address] Initial Review Date: 11/21/2019 Generated: 11/27/19 12:50 pm External Providers External Provider: [facility] Next Contact Date: Service Request Date: Service Type: Resolution: Reviewer: Comments: Patient Name: JIMBO LEVY Page 37840 at 1151 All edits/amendments must be made on the electronic document DICTATION DATE: 11/27/19 1150 MEETING COORDINATOR: FRANCO 11/27/19 1150 RPT#: [id number] DC DATE: STATUS: ADM IN [facility] [address] [place] [address] END OF REPORT
--- NOTE | 2019-11-27 11:59 | MORECARE ---
CASE MANAGEMENT DISCHARGE SUMMARY PATIENT: JIMBO LEVY UNIT: [id number] ADM DATE: 11/21/19 AGE: 54 : 61 SEX: F ROOM/BED: D.8655 AUTHOR: CAMDEN WAGONER PHYSICIAN: REFERRING PHYSICIAN: PRAVIN GOETZ MD DATE OF SERVICE: 11/27/19 Discharge Plan Patient Name: JIMBO LEVY [facility] [facility] 1965 Planned Disposition: Retirement Facility Anticipated Discharge Date: Discharge Date: Expected LOS: Initial Reviewer: [email or web address] Initial Review Date: 11/21/2019 Generated: 11/27/19 12:58 pm Comments DCP- Discharge Planning Updated by [email or web address]: Luisa Mensah on 11/27/19 10:[address] Faxed information to [place] for readmission to [facility] [phone]. Per [facility], they are not sure if the patient will be accepted back due to owed financial expenses. Last DP export: 11/27/19 10:51 a Patient Name: JIMBO LEVY Page [phone] at 1159 All edits/amendments must be made on the electronic document DICTATION DATE: 11/27/19 1158 SECURITY SYSTEMS SPECIALIST: FRANCO 11/27/19 1158 RPT#: [id number] DC DATE: STATUS: ADM IN [facility] [address] [id number] END OF REPORT
--- NOTE | 2019-11-27 12:06 | MORECARE ---
CASE MANAGEMENT DISCHARGE SUMMARY PATIENT: JIMBO LEVY UNIT: [id number] ADM DATE: 11/21/19 AGE: 54 : 61 SEX: F ROOM/BED: D.9575 AUTHOR: CAMDEN WAGONER PHYSICIAN: REFERRING PHYSICIAN: PRAVIN GOETZ MD DATE OF SERVICE: 11/27/19 Discharge Plan Patient Name: JIMBO LEVY [facility] [facility] 1965 Planned Disposition: Fdc Facility Anticipated Discharge Date: Discharge Date: Expected LOS: Initial Reviewer: [email or web address] Initial Review Date: 11/21/2019 Generated: 11/27/19 1:06 pm Comments DCP- Discharge Planning Updated by [email or web address]: Luisa Mensah on 11/27/19 10:[address] Faxed information to [place] for readmission to [facility] [phone]. Per sosa, they are not sure if the patient will be accepted back due to owed financial expenses. Last DP export: 11/27/19 10:51 a Patient Name: JIMBO LEVY Page 74916 at 1206 All edits/amendments must be made on the electronic document DICTATION DATE: 11/27/19 1206 NURSE INFORMATICS EDUCATOR: FRANCO 11/27/19 1206 RPT#: [id number] DC DATE: STATUS: ADM IN [facility] [address] [id number] END OF REPORT
--- NOTE | 2019-11-27 13:28 | NUR ---
BACK FROM DIALYSIS. VS STABLE.
[2019-11-27 15:00] VITALS: BP 166/64
--- NOTE | 2019-11-27 17:56 | MORECARE ---
CASE MANAGEMENT DISCHARGE SUMMARY PATIENT: JIMBO LEVY UNIT: [id number] ADM DATE: 11/21/19 AGE: 54 : 61 SEX: F ROOM/BED: D.4975 AUTHOR: CAMDEN WAGONER PHYSICIAN: REFERRING PHYSICIAN: PRAVIN GOETZ MD DATE OF SERVICE: 11/27/19 Discharge Plan Patient Name: JIMBO LEVY [facility] [facility] 1965 Planned Disposition: Long-Term Facility Anticipated Discharge Date: Discharge Date: Expected LOS: Initial Reviewer: [email or web address] Initial Review Date: 11/21/2019 Generated: 11/27/19 6:55 pm Comments DCP- Discharge Planning Updated by [email or web address]: Luisa Mensah on 11/27/19 4:[address] Per [facility], [facility] cannot meet the patient's needs. Faxed information to [place] for readmission to [facility] @[phone]. Per sosa, they are not sure if the patient will be accepted back due to owed financial expenses. Last DP export: 11/27/19 11:06 a Patient Name: JIMBO LEVY Page 79527 at 1756 All edits/amendments must be made on the electronic document DICTATION DATE: 11/27/191754 BULB PACKER: FRANCO 11/27/191754 RPT#: [id number] DC DATE: STATUS: ADM IN [facility] [address] [place] [address] END OF REPORT
--- NOTE | 2019-11-28 07:15 | NUR ---
RECEIVED PT IN BED EYES CLOSED RESP UNLABORED SKIN W/D NAD NOTED
[2019-11-28 09:00] VITALS: BP 187/80
[2019-11-28] MEDS ORDERED: NORVASC10 MG PO (12:59)
[2019-11-28] MEDS ORDERED: NITROQUICK0.4 MG SL (12:59)
[2019-11-28] MEDS ORDERED: COZAAR50 MG PO (12:59)
[2019-11-28] MEDS ORDERED: BAYER CHEWABLE81 MG PO (13:27)
--- NOTE | 2019-11-28 14:45 | NUR ---
REVIEWED DISCHARGE INSTRUCTIONS WITH PT STATES UNDERSTANDING COPY GIVEN D/CD RT IJ USING STERILE TECHNIQUE REMOVED CATHETER WITH TIP INTACT PT TOLERATED WELL OCCLUSIVED DRSG APPLIED PT DISCHARGED HOME IN STABLE CONDITION LEFT UNIT VIA W/C WITH ALL PERSONAL BELONGINGS
--- NOTE | 2019-11-29 09:13 | MORECARE ---
CASE MANAGEMENT DISCHARGE SUMMARY PATIENT: JIMBO LEVY UNIT: [id number] ADM DATE: 11/21/19 AGE: 54 : 61 SEX: F ROOM/BED: D.7695 AUTHOR: CAMDEN WAGONER PHYSICIAN: REFERRING PHYSICIAN: PRAVIN GOETZ MD DATE OF SERVICE: 11/29/19 Discharge Plan Patient Name: JIMBO LEVY [facility] [facility] 1965 Planned Disposition: Alf Facility Anticipated Discharge Date: Discharge Date: 11/28/2019 Expected LOS: Initial Reviewer: [email or web address] Initial Review Date: 11/21/2019 Generated: 11/29/19 10:13 am Comments DCP- Discharge Planning Updated by [email or web address]: Luisa Mensah on 11/27/19 4:[address] Per [facility], [place] cannot meet the patient's needs. Faxed information to [place] for readmission to [facility] @[phone]. Per sosa, they are not sure if the patient will be accepted back due to owed financial expenses. Last DP export: 11/27/19 4:56 p Patient Name: JIMBO LEVY Page 82926 at 0913 All edits/amendments must be made on the electronic document DICTATION DATE: 11/29/19912 HIGH LIFT OPERATOR: FRANCO 11/29/19912 RPT#: [id number] DC DATE:11/28/19 STATUS: DIS IN [facility] [address] [place] [address] END OF REPORT
--- NOTE | 2019-11-29 15:52 | MORECARE ---
CASE MANAGEMENT DISCHARGE SUMMARY PATIENT: JIMBO LEVY UNIT: [id number] ADM DATE: 11/21/19 AGE: 54 : 61 SEX: F ROOM/BED: D.7455 AUTHOR: CAMDEN WAGONER PHYSICIAN: REFERRING PHYSICIAN: PRAVIN GOETZ MD DATE OF SERVICE: 11/29/19 Discharge Plan Patient Name: JIMBO LEVY Facility: [facility]:[place] : 1965 Planned Disposition: Halfway Facility Anticipated Discharge Date: Discharge Date: 11/28/2019 Expected LOS: Initial Reviewer: [email or web address] Initial Review Date: 11/21/2019 Generated: 11/29/19 4:52 pm Comments DCP- Discharge Planning Updated by [email or web address]: Luisa Mensah on 11/27/19 4:[address] Per [facility], [facility] cannot meet the patient's needs. Faxed information to [facility] for readmission to [facility] @[phone]. Per sosa, they are not sure if the patient will be accepted back due to owed financial expenses. DCPIA - Discharge Planning Initial Assessment Updated by [email or web address]: Sia Diggs on 11/29/19 3:51 pm * Is the patient Alert and Oriented? Yes * Preadmission Environment Home with Family * ADLs Partial Dependent * Other Equipment ULISES AMPUTEE WITH ULISES PROTHETICS * List name and contact numbers for known caregivers / representatives who currently or will assist patient after discharge: MOTHER - [phone] * Verbal permission to speak to the caregivers and representatives has been obtained from the patient. Yes * Community resources currently utilized None * Please name any agencies selected above. [facility] - [facility] * Additional services required to return to the preadmission environment? No * Can the patient safely return to the preadmission environment? Yes * Has this patient been hospitalized within the prior 30 days at any hospital? No Last DP export: 11/29/19 8:13 a Patient Name: JIMBO LEVY Page 93051 at 1552 All edits/amendments must be made on the electronic document DICTATION DATE: 11/29/19 4752 GREY TENDER: FRANCO 11/29/19 155 RPT#: [id number] DC DATE:11/28/19 STATUS: DIS IN [facility] [address] [place] [address] END OF REPORT
--- NOTE | 2019-11-29 16:02 | MORECARE ---
CASE MANAGEMENT DISCHARGE SUMMARY PATIENT: JIMBO LEVY UNIT: [id number] ADM DATE: 11/21/19 AGE: 54 : 61 SEX: F ROOM/BED: D.4215 AUTHOR: RIZWANA,DOC PHYSICIAN: REFERRING PHYSICIAN: PRAVIN GOETZ MD DATE OF SERVICE: 11/29/19 Discharge Plan Patient Name: JIMBO LEVY Facility: [facility]:[place] : 1965 Planned Disposition: Intermediate Facility Anticipated Discharge Date: Discharge Date: 11/28/2019 Expected LOS: Initial Reviewer: [email or web address] Initial Review Date: 11/21/2019 Generated: 11/29/19 5:02 pm Comments DCP- Discharge Planning Updated by [email or web address]: Sia Diggs on 11/29/19 2:[address] LATE ENTRY 11/28/19 Patient lives with her daughter and is alright with returning to the home. D/C IMM signed 11/28/19 @ 1036. Patient states to call her mother [phone] for transportation home because her daughter is at work. CM will continue to follow and assist as needed with discharge planning / needs. DCP- Discharge Planning Updated by [email or web address]: Luisa Mensah on 11/27/19 4:[address] Per [facility], [facility] cannot meet the patient's needs. Faxed information to [facility] for readmission to [facility] @[phone]. Per sosa, they are not sure if the patient will be accepted back due to owed financial expenses. DCPIA - Discharge Planning Initial Assessment Updated by [email or web address]: Sia Diggs on 11/29/19 3:51 pm * Is the patient Alert and Oriented? Yes * Preadmission Environment Home with Family * ADLs Partial Dependent * Other Equipment ULISES AMPUTEE WITH ULISES PROTHETICS * List name and contact numbers for known caregivers / representatives who currently or will assist patient after discharge: MOTHER - [phone] * Verbal permission to speak to the caregivers and representatives has been obtained from the patient. Yes * Community resources currently utilized None * Please name any agencies selected above. HD - [facility] * Additional services required to return to the preadmission environment? No * Can the patient safely return to the preadmission environment? Yes * Has this patient been hospitalized within the prior 30 days at any hospital? No Last DP export: 11/29/19 2:52 p Patient Name: JIMBO LEVY Page [phone] at 1602 All edits/amendments must be made on the electronic document DICTATION DATE: 11/29/19 160 CLOTHING EXAMINER: FRANCO 11/29/19 1602 RPT#: [id number] DC DATE:11/28/19 STATUS: DIS IN [facility] [address] [place] [address] END OF REPORT
--- NOTE | 2019-11-30 08:06 | OP ---
PATIENT NAME: JIMBO LEVY MEDICAL RECORD: [id number] :61 LOCATION:D.M2 D.2115 ADMISSION DATE:11/21/19 SURGEON: VLAD STRANGE MD DATE OF OPERATION: 11/23/2019 PROCEDURE: Left heart catheterization, selective coronary angiography, right femoral artery approach. CATHETERS: A 5-Swedish sheath, 5/4 left and right Maria Esther, 5/4 pig. The procedure was well tolerated. The patient returned to the richard. Sheath removed. ExoSeal device placed. FINDINGS: Left ventriculography in 30-degree [place] view shows marked global hypokinesis, EF was markedly reduced 10% to 15%. CORONARY ANATOMY: LEFT MAIN: Left main is free of disease. LAD: LAD has mild luminal irregularities. No flow obstructive disease. CIRCUMFLEX: Left dominant system. Circumflex has tight stenosis 90% plus with MARGARITA flow 2 distally. Obviously infarct related artery. Right coronary artery is rudimentary. PLAN: Intervention to circumflex momentarily. Given the marked decreased function, the patient was started on Dobutrex. DESCRIPTION OF PROCEDURE: A 5-Swedish sheath was exchanged for a 6-Swedish sheath. An EBU 3.5 guiding catheter provided good guide catheter support, following which 300 cm Whisper wire. Pre-deployment balloon was 3.0 x 15 mm [place] balloon. Next, a 3.5 x 15 mm Integrity nondrug eluting stent up to 14 atmospheres for 45 seconds. Final angiography shows excellent resolution 90% plus stenosis, no significant residual. MARGARITA flow was improved to 3 at the end of procedure. Sheath was closed with ExoSeal device. Given anemia, bradycardia, marked myopathy, and need for dialysis, the patient was transferred to the CV ICU in critical, but stable condition. TRANSINT:[id number] Voice Confirmation ID: [id number] DOCUMENT ID: [id number] VLAD STRANGE MD at 0806 CC: [id number] DICTATION DATE: 11/23/1931 CONVEYOR TENDER CONCRETE MIXING PLANT: 11/23/192003 DIS IN 11/28/[id number] [place] [address]
== END 2019-11-28 14:45 | disposition home or self-care (01) | DRG 248 ==
LOC: D.ER 12:51 → D.M2 16:49 → D.CVICU 16:49 → D.M2 11-24 15:40
PROVIDERS: Family Medicine; Internal Medicine Interventional Cardiology; ADMIT Internal Medicine Nephrology; ATTEND Internal Medicine Nephrology
PROC: 05HM33Z Insertion of Infusion Device into Right Internal Jugular Vein, Percutaneous Approach (ICD-10-PCS; 2019-11-22)
PROC: B2151ZZ Fluoroscopy of Left Heart using Low Osmolar Contrast (ICD-10-PCS; 2019-11-23)
PROC: 4A023N7 Measurement of Cardiac Sampling and Pressure, Left Heart, Percutaneous Approach (ICD-10-PCS; 2019-11-23)
PROC: 02703DZ Dilation of Coronary Artery, One Artery with Intraluminal Device, Percutaneous Approach (ICD-10-PCS; principal; 2019-11-23 08:22)
PROC: B2111ZZ Fluoroscopy of Multiple Coronary Arteries using Low Osmolar Contrast (ICD-10-PCS; 2019-11-23 08:22)
DX: I25.10 Atherosclerotic heart disease of native coronary artery without angina pectoris (principal); I21.4 Non-ST elevation (NSTEMI) myocardial infarction; N18.6 End stage renal disease; I12.0 Hypertensive chronic kidney disease with stage 5 chronic kidney disease or end stage renal disease; D64.9 Anemia, unspecified; E78.5 Hyperlipidemia, unspecified; E11.9 Type 2 diabetes mellitus without complications; K59.00 Constipation, unspecified; I73.9 Peripheral vascular disease, unspecified

== ENCOUNTER 2019-12-21 02:37 | Inpatient (IN) | payer MEDICARE, MEDICAID ==
[~2019-12-21] VITALS: Ht 165.1 cm; Wt 90.7 kg
[~2019-12-21 02:37] MED LIST changes: +BAYER CHEWABLE81 MG PO; +CARAFATE1 G PO; +COZAAR25 MG PO; +COZAAR50 MG PO; +LASIX40 MG PO; +LEVEMIR IN100 UNITS/ SC; +LYRICA50 MG PO; +METOPROLOL TART50 MG PO; +NEURONTIN600 MG PO; +NITROQUICK0.4 MG SL; +NORVASC5 MG PO; +RENVELA800 MG PO; +ZOFRAN4 MG PO
[2019-12-21] MEDS ORDERED: CELEXA20 MG PO (02:49)
[2019-12-21] MEDS ORDERED: LEVEMIR IN100 UNITS/ SC (02:50)
[2019-12-21 03:48] LABS: BILIRUBIN NEGATIVE (NEGATIVE); GLUCOSE 250 mg/dL (NEGATIVE); KETONE NEGATIVE (NEGATIVE); NITRITE NEGATIVE (NEGATIVE); UROBILINOGEN NORMAL (NORMAL)
[2019-12-21 03:50] LABS: BACTERIA MODERATE /hpf (NEGATIVE); EPITHELIAL CELLS 0-5 /hpf (0-5); RED CELLS - URINE 0-5 /hpf (0-5); WHITE CELLS - URINE 0-5 /hpf (NEGATIVE)
[2019-12-21 04:35] LABS: BASOPHILS 0.1 % (0-2); HEMATOCRIT 32.1 % (36.0-48.0); IMMATURE GRANULOCYTES 0.2 % (0-5); LYMPHOCYTES 20.4 % (15-50); MCH 29.9 pg (26.0-34.0); MCHC 31.2 g/dL (31.0-37.0); MCV 95.8 fL (80.0-100.0); MEAN PLATELET VOLUME 10.9 fL (7.4-10.4); MONOCYTES 4.4 % (2-11); NEUTROPHILS 73.9 % (40-80); RBC 3.35 10x6/uL (4.00-5.40); RDW 19.9 % (11.5-14.5); WBC 10.1 10x3/uL (4.8-10.8)
[2019-12-21 04:41] LABS: PLATELET COUNT 290 10x3/uL (130-400)
[2019-12-21 04:46] LABS: ANION GAP 15.4 mmol/L (8-16); CALCIUM 9.2 mg/dL (8.5-10.1); CARBON DIOXIDE 26.6 mmol/L (21.0-32.0); CREATININE - SERUM 8.5 mg/dL (0.6-1.3)
[2019-12-21 05:09] LABS: ALBUMIN 3.6 g/dL (3.4-5.0); BILIRUBIN - TOTAL 0.43 mg/dL (0.2-1.3); MAGNESIUM - SERUM 2.3 mg/dL (1.8-2.4); PHOSPHOROUS 3.8 mg/dL (2.5-4.9); PROTEIN - SERUM 7.9 g/dL (6.4-8.2); THYROID STIMULATING HORMONE 1.2 uIU/mL (0.36-3.74)
[2019-12-21 05:15] LABS: TROPONIN-I 0.148 ng/mL (0.000-0.060)
[2019-12-21 06:05] VITALS: BP 125/78
--- NOTE | 2019-12-21 09:59 | NUR ---
PT AWAKE AND OREINTED, FALLS TO SLEEP QUICKLY. PT ESCORTED TO DAILYSIS VIA BED.
[2019-12-21 14:05] VITALS: BP 122/61; BMI 33.3
[2019-12-21 15:00] VITALS: BP 138/65
--- NOTE | 2019-12-21 19:00 | NUR ---
EVENING ROUNDS COMPLETE. PT SITTING UP IN BED. NO SIGNS OF DISTRESS. PT C/O PAIN 12/27, WILL BRING PAIN MEDICATION WITH EVENING MEDS, PT VOICED UNDERSTANDING. NO OTHER NEEDS VOICED AT THIS TIME. AAOX4. CL IN REACH, BED IN LOWEST POSITION.
[2019-12-21 20:00] VITALS: BP 161/78
[2019-12-22 00:59] VITALS: BP 112/66
[2019-12-22 05:11] VITALS: BP 121/54
--- NOTE | 2019-12-22 07:00 | NUR ---
RECEIVED REPORT. ASSUMED CARE OF PATIENT. CALL LIGHT WITHIN REACH. PATIENT ENCOURAGED TO DO MUCH POSSIBLE. WHITE BOARD UPDATED. BEDSIDE SHIFT REPORT COMPLETE. DENIES NEEDS AT THIS TIME. NO DISTRESS.
[2019-12-22 08:00] VITALS: BP 132/59
[2019-12-22 11:00] VITALS: BP 120/60
--- NOTE | 2019-12-22 12:11 | NUR ---
FSBS 130. NO INSULIN ADMINISTERED PER SLIDING SCALE.
[2019-12-22 13:05] VITALS: BMI 33.2
--- NOTE | 2019-12-22 14:15 | NUR ---
MEDICATED FOR PAIN AT THIS TIME. NO DISTRESS.
[2019-12-22 15:00] VITALS: BP 125/64
--- NOTE | 2019-12-22 17:00 | NUR ---
FSBS 108. NO INSULIN PER SLIDING SCALE.
--- NOTE | 2019-12-22 19:00 | NUR ---
REPORT RECEIVED, WILL CONTINUE POC. PATIENT IS AAOX4, SITTING UP IN BED. NO S/S OF DISTRESS OBSERVED, RR EVEN AND UNLABORED ON 2L O2 VIA NC. PATIENT DENIES NEEDS AT THIS TIME. CL IN REACH, BED LOCKED AND LOWERED. WILL CTM.
[2019-12-22 20:00] VITALS: BP 118/55
[2019-12-23] VITALS: BP 130/54
[2019-12-23 04:00] VITALS: BP 114/50
[2019-12-23 08:00] VITALS: BP 113/52
[2019-12-23 12:31] LABS: BASOPHILS 0.2 % (0-2); EOSINOPHILS 4.8 % (0-7); HEMATOCRIT 25.4 % (36.0-48.0); HEMOGLOBIN 7.9 g/dL (12-16); IMMATURE GRANULOCYTES 0.2 % (0-5); LYMPHOCYTES 25.7 % (15-50); MCH 29.6 pg (26.0-34.0); MCHC 31.1 g/dL (31.0-37.0); MCV 95.1 fL (80.0-100.0); MEAN PLATELET VOLUME 11.1 fL (7.4-10.4); MONOCYTES 5.4 % (2-11); NEUTROPHILS 63.7 % (40-80); RBC 2.67 10x6/uL (4.00-5.40); RDW 19.4 % (11.5-14.5); WBC 6.3 10x3/uL (4.8-10.8)
[2019-12-23 12:32] LABS: PLATELET COUNT 220 10x3/uL (130-400)
[2019-12-23 12:53] VITALS: Ht 165.1 cm; Wt 90.7 kg
[2019-12-23 12:56] LABS: ANION GAP 5.9 mmol/L (8-16); CALCIUM 9.4 mg/dL (8.5-10.1); CARBON DIOXIDE 32.4 mmol/L (21.0-32.0); CREATININE - SERUM 4.6 mg/dL (0.6-1.3); PHOSPHOROUS 3.3 mg/dL (2.5-4.9); POTASSIUM - SERUM 3.3 mmol/L (3.5-5.1)
[2019-12-23 12:58] LABS: TROPONIN-I 0.072 ng/mL (0.000-0.060)
[2019-12-23 15:00] VITALS: BP 138/54
--- NOTE | 2019-12-23 19:15 | NUR ---
PATIENT IS CONFUSED AND CALLING OUT. SHE WANTS HER PROSTHETIC LEGS ON. I EXPLAINED WHERE SHE WAS AND WHAT TIME IT WAS. SHE IS ANXIOUS. I REASSURED HER SHE WAS SAFE.
[2019-12-23 20:00] VITALS: BP 134/58
[2019-12-24 04:00] VITALS: BP 135/55
--- NOTE | 2019-12-24 04:05 | NUR ---
PATIENT IS SLEEPING IN BED. SHE RECEIVED RESTORIL TO HELP HER SLEEP. WE WILL MONITOR HER MENTATION.
[2019-12-24 06:29] LABS: BASOPHILS 0.2 % (0-2); EOSINOPHILS 3.9 % (0-7); HEMATOCRIT 27.2 % (36.0-48.0); HEMOGLOBIN 8.5 g/dL (12-16); IMMATURE GRANULOCYTES 0.2 % (0-5); LYMPHOCYTES 28.3 % (15-50); MCHC 31.3 g/dL (31.0-37.0); MEAN PLATELET VOLUME 10.8 fL (7.4-10.4); MONOCYTES 7.3 % (2-11); NEUTROPHILS 60.1 % (40-80); PLATELET COUNT 218 10x3/uL (130-400); RBC 2.93 10x6/uL (4.00-5.40); RDW 19.1 % (11.5-14.5); WBC 6.5 10x3/uL (4.8-10.8)
[2019-12-24 06:33] LABS: MCV 92.8 fL (80.0-100.0)
[2019-12-24 07:19] LABS: ANION GAP 9.1 mmol/L (8-16); CARBON DIOXIDE 31.9 mmol/L (21.0-32.0)
[2019-12-24 07:20] LABS: CREATININE - SERUM 6.8 mg/dL (0.6-1.3); PHOSPHOROUS 4.8 mg/dL (2.5-4.9)
[2019-12-24 08:01] VITALS: BP 117/70
[2019-12-24] MEDS ORDERED: HYDROCODON-ACE1 EA10 PO (08:44)
[2019-12-24] MEDS ORDERED: NEURONTIN600 MG PO (09:29)
--- NOTE | 2019-12-24 10:18 | NUR ---
Nutrition Follow-up: Eating breakfast at time of visit this AM. Reports appetite is ok and is drinking 1-2 Nepro/day. Denies N/V. -BM; +flatus. Noted plans to d/c today. Diet: Renal ADA, Nepro TID Wt: 200# (12/21) Labs noted: Na 134, Glu 68, Ca 8.0 Meds noted: Lantus, Humalog, Renagel -Encourage PO intake and honor food preferences within diet restrictions. -Monitor wt; noted daily wts ordered. -RD following.
--- NOTE | 2019-12-24 11:35 | NUR ---
SALINE LOCK REMOVED WITH CATH TIP INTACT. VERBAL AND WRITTEN D/C INSTRUCTIONS GIVEN TO PATIENT. DAUGHTER AT BEDSIDE. FOX AND ANJANA WITH THERAPY HERE TO ASSIST PLACING BILATERAL LEG PROSTHESICS ON PATIENT AND PLACING IN WHEELCHAIR. WRITTEN SCRIPT FOR NORCO GIVEN TO DAUGHTER ALONG WITH PAPERWORK. ESTHER TO ASSIST PATIENT TO VECHILE.
--- NOTE | 2019-12-24 12:08 | MORECARE ---
CASE MANAGEMENT DISCHARGE SUMMARY PATIENT: JIMBO LEVY UNIT: [id number] ADM DATE: 12/21/19 AGE: 54 : 61 SEX: F ROOM/BED: D.2104 AUTHOR: CAMDEN WAGONER PHYSICIAN: REFERRING PHYSICIAN: PRAVIN GOETZ MD DATE OF SERVICE: 12/24/19 Discharge Plan Patient Name: JIMBO LEVY Facility: [facility]:[place] : 1965 Planned Disposition: Home Anticipated Discharge Date: 12/24/19 Discharge Date: Expected LOS: 3 Initial Reviewer: [email or web address] Initial Review Date: 12/21/2019 Generated: 12/24/19 1:07 pm Comments DCP- Discharge Planning Updated by [email or web address]: Luisa Mensah on 12/24/19 10:[address] CM met with patient to discuss initial discharge planning. Patient is in agreement to proceed with the assessment. Patient reports that she lives partially dependent, with her daughter, Marcie Cortez (no number). Patient is alert/oriented. PCP:[facility]. Pharmacy: [facility]. HHS: [facility], in past, but not current. DME: Manual W/C, walker, shower chair, grab bars, bilateral leg prosthetics. HD days: //Sat @6 am.Patient gives permission to speak with family members/care givers. Emergency contact: Patient is dependent with all ADL's, medication management CORRAL BOSS. CM discussed the availability of HH, Rehab, SNF, OP Therapy, DME services. Patient denies the need for additional services at this time and feels safe returning to previous environment. Patient denies hospitalization within the past 30 days. Patient denies the use of community resources [facility] [employer]. Transportation at time of discharge: Patient's daughter, Marcie. Coverage Notice Reviewer: [email or web address] - Luisa Mensah Notice Issued Date-Time: 12/24/2019 9:19 Notice Type: IM Discharge Notice Notice Delivered To: Patient Relationship to Patient: Self Direct Marketing Analyst Name: JIMBO LEVY Delivery Method: HAND - Hand Delivered Renae Days: Prior Verbal Notification: Recipient Understood Notice: Yes Recipient Signature: Yes Med Rec Note Co-signed by Attending: Coverage Notice Comment: DC IMM Patient Name: JIMBO LEVY Page [phone] at 1208 All edits/amendments must be made on the electronic document DICTATION DATE: 12/24/191206 INDIAN BLANKET WEAVER: FRANCO 12/24/191206 RPT#: [id number] DC DATE: STATUS: ADM IN [facility] [address] [place] [address] END OF REPORT
--- NOTE | 2019-12-24 12:09 | NUR ---
PATIENT DISCHARGED BY AT 11:30 BY WHEELCHAIR WITH DAUGHTER.
== END 2019-12-24 11:30 | disposition home or self-care (01) | DRG 291 ==
LOC: D.ER 02:37 → D.M2 06:02
PROVIDERS: Emergency Medicine; ADMIT Internal Medicine Nephrology; ATTEND Internal Medicine Nephrology
PROC: 5A1D70Z Performance of Urinary Filtration, Intermittent, Less than 6 Hours Per Day (ICD-10-PCS; principal; 2019-12-21)
DX: I13.2 Hypertensive heart and chronic kidney disease with heart failure and with stage 5 chronic kidney disease, or end stage renal disease (principal); N18.6 End stage renal disease; E11.22 Type 2 diabetes mellitus with diabetic chronic kidney disease; Z99.2 Dependence on renal dialysis; D63.1 Anemia in chronic kidney disease; I25.10 Atherosclerotic heart disease of native coronary artery without angina pectoris; G89.4 Chronic pain syndrome; E83.39 Other disorders of phosphorus metabolism; I50.9 Heart failure, unspecified; M75.22 Bicipital tendinitis, left shoulder; Z89.512 Acquired absence of left leg below knee; Z89.511 Acquired absence of right leg below knee

== ENCOUNTER → 2019-12-31 13:27 | Outpatient (CLI) | payer MEDICARE, MEDICAID ==
[2019-12-23 12:53] VITALS: BMI 33.2
--- NOTE | ~2019-12-31 | EC ---
PATIENT:JIMBO LEVY DATE OF SERVICE: 12/31/19 SEX: F MEDICAL RECORD: [id number] DATE OF : 61 LOCATION:[facility] AGE OF PATIENT: 54 ADMISSION DATE: 12/31/19 REFERRING PHYSICIAN: INTERPRETING PHYSICIAN: VLAD STRANGE MD ECHOCARDIOGRAM REPORT ECHO CHARGES 4 ECHO COMPLETE Date: 12/31/19 CLINICAL DIAGNOSIS: CARDIOMYOPATHY/CAD/ASSESS EF ECHOCARDIOGRAPHIC MEASUREMENTS (adult normal given) AC root (d.<3.7cm) 3.5 cm LV Septum d (<1.2 cm> 1.4 cm Valve Excursion 1.4 cm LV Septum (systole) 1.6 cm Left Atria (s.<4.0cm> 5.7 cm LVPW d(<1.2cm) 1.6 cm RV (d.<2.3cm) 3.5 cm LVPW (sytole) 1.7 cm LV diastole(<5.6CM) 6.2 cm MV E-F(>70mm/sec) cm LV systole 4.9 cm LVOT Diameter 2.0 cm MV exc.(>10mm) 2.0 cm Est.ejection fraction (50-75%) % DOPPLER: LVIT cm/sec A 80.0 cm/sec E 117.0 cm/sec LA cm/sec RVSP 16 mmHg LVOT 114 cm/sec AOP1/2T m/s Asc. Ao 144 cm/sec RVOT 73 cm/sec RA cm/sec PA cm/sec AV Gradient Peak 8.24 mmHg AV Mean 4.00 mmHg AV Area 3.0 cm MV Gradient Peak 8.36 mmHg MV Mean 2.52 mmHg MV Area cm COMMENTS: Commercial Intern: 2 JAYANT MARIO Heeler: 2 Dr. Miramontes TAPE# PACS Pericardial Effusion Y DATE OF SERVICE: Adequate 2D, color flow imaging, spectral Doppler, and M-Mode. Mild LVH. LV internal dimensions are dilated. LV wall motion appears to be normal. EF is greater than 50%. Aortic valve is tricuspid. No evidence of stenosis by Doppler interrogation. Left atrium is dilated at 5.7 cm. Mitral valve shows no prolapse. Mild plus MR. Right-sided chambers are grossly normal. Mild TR. TRANSINT:[id number] Voice Confirmation ID: [id number] DOCUMENT ID: [id number] ECHOCARDIOGRAM REPORT [id number] JIMBO LEVY GREGORY A MD CC: [id number] DICTATION DATE: 01/04/20 1028 HAND BRIM IRONER: 01/04/202043 DEP CLI 12/31/19 [id number] [place] [address]
[~2019-12-31 13:27] MED LIST changes: +CELEXA20 MG PO; +HYDROCODON-ACE1 EA10 PO
== END | disposition home or self-care (01) ==
LOC: D.HCCECHO 13:27
PROVIDERS: ATTEND Internal Medicine Interventional Cardiology
DX: I42.9 Cardiomyopathy, unspecified (principal)

== ENCOUNTER → 2020-08-18 14:04 | Outpatient (CLI) | payer MEDICARE, MEDICAID ==
[2019-12-23 12:53] VITALS: BMI 33.2
--- NOTE | ~2020-08-18 | EC ---
PATIENT:JIMBO LEVY DATE OF SERVICE: 08/18/20 SEX: F MEDICAL RECORD: [id number] DATE OF : 61 [facility] AGE OF PATIENT: 54 ADMISSION DATE: 08/18/20 REFERRING PHYSICIAN: INTERPRETING PHYSICIAN: VLAD STRANGE MD ECHOCARDIOGRAM REPORT ECHO CHARGES 4 ECHO COMPLETE Date: 08/18/20 CLINICAL DIAGNOSIS: HX OF CAD/ISCHEMIC CARDIOMYOPATHY, ASSESS EF ECHOCARDIOGRAPHIC MEASUREMENTS (adult normal given) AC root (d.<3.7cm) 3.4 cm LV Septum d (<1.2 cm> 1.7 cm Valve Excursion 1.0 cm LV Septum (systole) 2.2 cm Left Atria (s.<4.0cm> 4.8 cm LVPW d(<1.2cm) 1.8 cm RV (d.<2.3cm) 3.8 cm LVPW (sytole) 2.2 cm LV diastole(<5.6CM) 5.7 cm MV E-F(>70mm/sec) cm LV systole 3.8 cm LVOT Diameter 2.0 cm MV exc.(>10mm) 1.6 cm Est.ejection fraction (50-75%) % DOPPLER: LVIT cm/sec A 78.0 cm/sec E 134.0 cm/sec LA cm/sec RVSP 14 mmHg LVOT 51 cm/sec AOP1/2T m/s Asc. Ao 124 cm/sec RVOT cm/sec RA cm/sec PA 88 cm/sec AV Gradient Peak 6.11 mmHg AV Mean 3.43 mmHg AV Area 1.3 cm MV Gradient Peak 11.89mmHg MV Mean 3.07 mmHg MV Area cm COMMENTS: Academic Counselor: 2 JAYANT MARIO Graphic Art Technician: 3 Dr. Lopez TAPE# PACS Pericardial Effusion N DATE OF SERVICE: Adequate 2D, color-flow imaging, spectral Doppler, and M-Mode. LVH is present. LV internal dimensions are normal. Wall motion is normal. EF is greater than or equal to 55%. Aortic valve is sclerotic. No evidence of stenosis by Doppler interrogation. Left atrium is dilated at 4.8 cm. Mitral valve shows no prolapse. Mild MR. Right-sided chambers are grossly normal. Trace TR. ECHOCARDIOGRAM REPORT [id number] JIMBO LEVY TRANSINT:[id number] Voice Confirmation ID: [id number] DOCUMENT ID: [id number] VLAD STRANGE MD CC: [id number] DICTATION DATE: 08/19/201122 OUTREACH ASSISTANT: 08/19/202119 [facility] CLI 08/18/20 [place] [id number] [place] [id number]
== END | disposition home or self-care (01) ==
LOC: D.HCCECHO 14:00
PROVIDERS: ATTEND Internal Medicine Interventional Cardiology
DX: I25.10 Atherosclerotic heart disease of native coronary artery without angina pectoris (principal)

== ENCOUNTER 2020-09-27 02:08 | Inpatient (IN) | payer MEDICARE, MEDICAID ==
[~2020-09-27] VITALS: Ht 165.1 cm; Wt 83.9 kg
[2020-09-27 02:51] LABS: BASOPHILS 0.6 % (0-2); EOSINOPHILS 1.1 % (0-7); HEMOGLOBIN 10.5 g/dL (12-16); IMMATURE GRANULOCYTES 0.2 % (0-5); LYMPHOCYTE ABS# 1.49 10x3/uL (1.18-3.74); LYMPHOCYTES 31.8 % (15-50); MCH 30.6 pg (26.0-34.0); MCHC 30.9 g/dL (31.0-37.0); MCV 99.1 fL (80.0-100.0); MEAN PLATELET VOLUME 11.8 fL (7.4-10.4); MONOCYTES 10.2 % (2-11); NEUTROPHIL ABS# 2.63 10x3/uL (1.56-6.13); NEUTROPHILS 56.1 % (40-80); PLATELET COUNT 216 10x3/uL (130-400); RBC 3.43 10x6/uL (4.00-5.40); WBC 4.7 10x3/uL (4.8-10.8)
[2020-09-27 03:02] LABS: ANION GAP 11.5 mmol/L (8-16); CALCIUM 8.3 mg/dL (8.5-10.1); CARBON DIOXIDE 31.2 mmol/L (21.0-32.0); CREATININE - SERUM 6.1 mg/dL (0.6-1.3); POTASSIUM - SERUM 3.7 mmol/L (3.5-5.1)
[2020-09-27 03:08] LABS: BILIRUBIN - TOTAL 0.64 mg/dL (0.2-1.3); PROTEIN - SERUM 6.7 g/dL (6.4-8.2)
[2020-09-27 03:37] LABS: SARS-CoV-2 ANTIGEN NEGATIVE- SARS-COV-2 (NEGATIVE)
--- NOTE | 2020-09-27 04:44 | NUR ---
pt received to room 2103 via stretcher, awake, alert oriented x4. transferred to room bed via 3 person transfer is not sure of her meds. she is unsur why she is here. no distress noted will continue to monitor
[2020-09-27 05:29] VITALS: BP 138/66; BMI 30.8
[2020-09-27 08:08] VITALS: BP 128/67
[2020-09-27 10:21] LABS: FERRITIN 826 ng/mL (3-244); LDH 188 U/L (81-234)
[2020-09-27 10:56] VITALS: BP 132/44
[2020-09-27 11:01] LABS: ERYTHROCYTE SEDIMENTATION RATE 36 mm/hr (0-30)
[2020-09-27 11:03] VITALS: BP 150/54
[2020-09-27 11:14] VITALS: BMI 30.7
[2020-09-27 11:16] LABS: INFLUENZA TYPE A NEGATIVE (NEGATIVE); INFLUENZA TYPE B NEGATIVE (NEGATIVE)
[2020-09-27 11:18] VITALS: Ht 165.1 cm; Wt 83.9 kg
--- NOTE | 2020-09-27 18:55 | NUR ---
pt awake, alert lying in bed denies any needs, covid precautions continue no acute distress will continue to monitorr
[2020-09-28 01:35] VITALS: BP 140/43
[2020-09-28 05:28] LABS: BASOPHILS 0.5 % (0-2); EOSINOPHILS 8.6 % (0-7); HEMATOCRIT 33.1 % (36.0-48.0); HEMOGLOBIN 10.1 g/dL (12-16); IMMATURE GRANULOCYTES 0.3 % (0-5); LYMPHOCYTE ABS# 1.34 10x3/uL (1.18-3.74); LYMPHOCYTES 34.8 % (15-50); MCH 30.1 pg (26.0-34.0); MCHC 30.5 g/dL (31.0-37.0); MCV 98.5 fL (80.0-100.0); MEAN PLATELET VOLUME 12.3 fL (7.4-10.4); MONOCYTES 9.6 % (2-11); NEUTROPHIL ABS# 1.78 10x3/uL (1.56-6.13); NEUTROPHILS 46.2 % (40-80); PLATELET COUNT 204 10x3/uL (130-400); RBC 3.36 10x6/uL (4.00-5.40); RDW 16.6 % (11.5-14.5); WBC 3.9 10x3/uL (4.8-10.8)
[2020-09-28 05:46] LABS: ALBUMIN 2.8 g/dL (3.4-5.0); ANION GAP 13.2 mmol/L (8-16); BILIRUBIN - TOTAL 0.53 mg/dL (0.2-1.3); C-REACTIVE PROTEIN 7.1 mg/dL (0.0-0.9); CALCIUM 8.6 mg/dL (8.5-10.1); CARBON DIOXIDE 29.8 mmol/L (21.0-32.0); MAGNESIUM - SERUM 2.5 mg/dL (1.8-2.4); PHOSPHOROUS 4.9 mg/dL (2.5-4.9); PROTEIN - SERUM 6.7 g/dL (6.4-8.2)
[2020-09-28 05:52] LABS: CREATININE - SERUM 7.8 mg/dL (0.6-1.3)
[2020-09-28 05:57] VITALS: BP 115/36
[2020-09-28 08:38] VITALS: BP 164/54
[2020-09-28 12:02] VITALS: BP 146/43
[2020-09-28 15:56] VITALS: BP 133/55
--- NOTE | 2020-09-28 18:15 | NUR ---
NEGATIVE COVID SWAB, PER DR JANE, CAN TAKE OFF ISOLATION.
[2020-09-28 20:21] VITALS: BP 162/62
[2020-09-29 01:37] VITALS: BP 159/40
[2020-09-29 04:30] VITALS: BP 177/63
[2020-09-29 04:49] VITALS: BP 157/66
[2020-09-29 05:48] LABS: BASOPHILS 0.8 % (0-2); HEMATOCRIT 32.8 % (36.0-48.0); HEMOGLOBIN 10.3 g/dL (12-16); IMMATURE GRANULOCYTES 0.2 % (0-5); LYMPHOCYTE ABS# 1.32 10x3/uL (1.18-3.74); LYMPHOCYTES 27.9 % (15-50); MCH 30.2 pg (26.0-34.0); MCHC 31.4 g/dL (31.0-37.0); MEAN PLATELET VOLUME 12.3 fL (7.4-10.4); MONOCYTES 6.1 % (2-11); NEUTROPHIL ABS# 2.74 10x3/uL (1.56-6.13); PLATELET COUNT 208 10x3/uL (130-400); RBC 3.41 10x6/uL (4.00-5.40); WBC 4.7 10x3/uL (4.8-10.8)
[2020-09-29 05:55] LABS: MCV 96.2 fL (80.0-100.0)
[2020-09-29 06:19] LABS: ANION GAP 12.4 mmol/L (8-16); BILIRUBIN - TOTAL 0.62 mg/dL (0.2-1.3); CALCIUM 8.7 mg/dL (8.5-10.1); CARBON DIOXIDE 29.1 mmol/L (21.0-32.0); CREATININE - SERUM 6.1 mg/dL (0.6-1.3); MAGNESIUM - SERUM 2.3 mg/dL (1.8-2.4); PHOSPHOROUS 3.5 mg/dL (2.5-4.9); POTASSIUM - SERUM 3.5 mmol/L (3.5-5.1)
[2020-09-29 08:00] VITALS: BP 104/64; BP 186/69
[2020-09-29 12:00] VITALS: BP 170/74
--- NOTE | 2020-09-29 13:05 | NUR ---
Nutrition Follow-up: Pt confused. Noted Nepro & Nephrovite added per renal. HD yesterday (-1L). Covid (-). Diet: Renal ADA, Nepro TID No PO intake recorded in chart No new wt; last wt: 185# (09/27) Labs noted: Na 134, K+ 3.5, Glu 129, PO4 3.5, Alb 3.0 Meds noted: Lantus, Nephrovite, Lactulose, Florajen, Zofran, Renagel, Protonix -Encourage PO intake and honor food preferences within diet restrictions. -Continue Nepro with meals. -Need new wt. -RD will follow up within 4-5 days.
--- NOTE | 2020-09-29 19:30 | NUR ---
PT IN BED, AAO X 3, RESP EVEN AND UNLABORED, NO DISTRESS NOTED, CL IN REACH, SR UP X 2.
[2020-09-29 20:39] VITALS: BP 180/75
[2020-09-30 05:07] VITALS: BP 178/64
[2020-09-30 06:09] LABS: BASOPHILS 0.4 % (0-2); EOSINOPHILS 4.6 % (0-7); HEMATOCRIT 31.8 % (36.0-48.0); HEMOGLOBIN 10.1 g/dL (12-16); IMMATURE GRANULOCYTES 0.6 % (0-5); LYMPHOCYTE ABS# 1.69 10x3/uL (1.18-3.74); LYMPHOCYTES 32.6 % (15-50); MCH 29.8 pg (26.0-34.0); MCHC 31.8 g/dL (31.0-37.0); MEAN PLATELET VOLUME 11.6 fL (7.4-10.4); MONOCYTES 4.6 % (2-11); NEUTROPHIL ABS# 2.97 10x3/uL (1.56-6.13); NEUTROPHILS 57.2 % (40-80); PLATELET COUNT 227 10x3/uL (130-400); RBC 3.39 10x6/uL (4.00-5.40); RDW 15.8 % (11.5-14.5); WBC 5.2 10x3/uL (4.8-10.8)
[2020-09-30 06:20] LABS: MCV 93.8 fL (80.0-100.0)
[2020-09-30 06:35] LABS: ANION GAP 14.3 mmol/L (8-16); BILIRUBIN - TOTAL 0.74 mg/dL (0.2-1.3); CALCIUM 8.2 mg/dL (8.5-10.1); CARBON DIOXIDE 28.2 mmol/L (21.0-32.0); CREATININE - SERUM 7.9 mg/dL (0.6-1.3); MAGNESIUM - SERUM 2.3 mg/dL (1.8-2.4); PHOSPHOROUS 4.3 mg/dL (2.5-4.9); POTASSIUM - SERUM 3.5 mmol/L (3.5-5.1); VANCOMYCIN - RANDOM 16.2 ug/mL (10.0-20.0)
--- NOTE | 2020-09-30 07:39 | NUR ---
AM ROUNDING DONE WITH PATIENT BEING MADE NPO FOR CTA. LEFT ARM RESEVRE WITH + BRUIT AND THRILL OF FISTULA. RIGHT WRIST SALINE LOCK WITH ORANGE CAP PRESENT. BILATERAL BKA, PROSTHESIS X 2 IN ROOM ON 2L PER NC. ON HEART MONITOR. ON LOVENOX.
[2020-09-30 08:13] VITALS: BP 180/71
--- NOTE | 2020-09-30 10:36 | NUR ---
TO CT AND BACK VIA BED.
--- NOTE | 2020-09-30 11:54 | NUR ---
TO DIALYSIS VIA BED.
[2020-09-30 13:11] LABS: PROCALCITONIN 0.87 ng/mL (0.00-0.08)
--- NOTE | 2020-09-30 16:28 | NUR ---
RETURNS FROM DIALYSIS
--- NOTE | 2020-09-30 18:02 | NUR ---
C/O PAIN TO BACK/LEG. NORCO GIVEN.
--- NOTE | 2020-09-30 21:12 | NUR ---
PT IN BED, AAO X 3, RESP EVEN AND UNLABORED, NO DISTRESS NOTED, CL IN REACH, SR UP X 2.
[2020-09-30 21:13] VITALS: BP 166/64
[2020-09-30 23:44] VITALS: BP 149/62
[2020-10-01 03:27] VITALS: BP 179/64
[2020-10-01 05:38] LABS: BASOPHILS 0.6 % (0-2); EOSINOPHILS 3.8 % (0-7); HEMATOCRIT 29.7 % (36.0-48.0); HEMOGLOBIN 9.6 g/dL (12-16); IMMATURE GRANULOCYTES 0.4 % (0-5); LYMPHOCYTE ABS# 1.65 10x3/uL (1.18-3.74); LYMPHOCYTES 35.3 % (15-50); MCH 30.6 pg (26.0-34.0); MCHC 32.3 g/dL (31.0-37.0); MCV 94.6 fL (80.0-100.0); MEAN PLATELET VOLUME 12.1 fL (7.4-10.4); NEUTROPHIL ABS# 2.52 10x3/uL (1.56-6.13); NEUTROPHILS 53.9 % (40-80); PLATELET COUNT 232 10x3/uL (130-400); RBC 3.14 10x6/uL (4.00-5.40); RDW 16.2 % (11.5-14.5); WBC 4.7 10x3/uL (4.8-10.8)
[2020-10-01 05:58] LABS: ALBUMIN 2.9 g/dL (3.4-5.0); ANION GAP 11.8 mmol/L (8-16); BILIRUBIN - TOTAL 0.73 mg/dL (0.2-1.3); CALCIUM 8.7 mg/dL (8.5-10.1); CARBON DIOXIDE 30.3 mmol/L (21.0-32.0); MAGNESIUM - SERUM 2.3 mg/dL (1.8-2.4); PHOSPHOROUS 3.8 mg/dL (2.5-4.9); POTASSIUM - SERUM 3.1 mmol/L (3.5-5.1); PROTEIN - SERUM 6.5 g/dL (6.4-8.2); VANCOMYCIN - RANDOM 13.2 ug/mL (10.0-20.0)
[2020-10-01 05:59] LABS: CREATININE - SERUM 5.7 mg/dL (0.6-1.3)
--- NOTE | 2020-10-01 07:39 | NUR ---
REPORT RECEIVED. PATIENT IS LYING IN BED, RESTING WITH EYES CLOSED. NO S/S OF DISTRESS OBSERVED, RR EVEN AND UNLABORED ON 2L O2 VIA NC. PIV TO RT HAND, SL. NO NEEDS EXPRESSED AT THIS TIME. CL IN REACH, BED LOCKED AND LOWERED. WILL CPOC.
[2020-10-01 08:35] VITALS: BP 170/66
[2020-10-01 12:32] VITALS: BP 168/62
[2020-10-01 16:20] VITALS: BP 153/52
--- NOTE | 2020-10-01 19:30 | NUR ---
PT IN BED, AAO X 4, RESP EVEN AND UNLABORED, NO DISTRESS NOTED, CL IN REACH, SR UP X 2.
[2020-10-01 19:59] VITALS: BP 157/55
[2020-10-02] VITALS (7 sets, daily range): BP systolic 143–198; BP diastolic 36–71
[2020-10-02 06:24] LABS: BASOPHILS 0.4 % (0-2); EOSINOPHILS 4.4 % (0-7); HEMATOCRIT 30.9 % (36.0-48.0); HEMOGLOBIN 9.9 g/dL (12-16); IMMATURE GRANULOCYTES 0.5 % (0-5); LYMPHOCYTE ABS# 1.77 10x3/uL (1.18-3.74); LYMPHOCYTES 32.2 % (15-50); MCH 30.5 pg (26.0-34.0); MCV 95.1 fL (80.0-100.0); MEAN PLATELET VOLUME 12.1 fL (7.4-10.4); MONOCYTES 7.1 % (2-11); NEUTROPHIL ABS# 3.04 10x3/uL (1.56-6.13); NEUTROPHILS 55.4 % (40-80); PLATELET COUNT 250 10x3/uL (130-400); RBC 3.25 10x6/uL (4.00-5.40); RDW 16.5 % (11.5-14.5); WBC 5.5 10x3/uL (4.8-10.8)
[2020-10-02 06:41] LABS: ANION GAP 14.4 mmol/L (8-16); BILIRUBIN - TOTAL 0.75 mg/dL (0.2-1.3); CALCIUM 8.9 mg/dL (8.5-10.1); CARBON DIOXIDE 26.9 mmol/L (21.0-32.0); MAGNESIUM - SERUM 2.5 mg/dL (1.8-2.4); POTASSIUM - SERUM 3.3 mmol/L (3.5-5.1); PROTEIN - SERUM 6.8 g/dL (6.4-8.2)
[2020-10-02 06:44] LABS: CREATININE - SERUM 7.7 mg/dL (0.6-1.3); PHOSPHOROUS 5.5 mg/dL (2.5-4.9)
--- NOTE | 2020-10-02 07:20 | NUR ---
RECIEVE REPORT. ALERT AND ORIENTED X4. ASSIST WITH BEDPAN. NO SIGNS OF DISTRESS. DENIES ANY OTHER NEEDS. CONTINUE PLAN OF CARE AND SAFETY PRECAUTIONS.
--- NOTE | 2020-10-02 19:50 | NUR ---
INITAIL ROUNDS COMPLETED AT 1910 HRS. PT WATCHING TV. NO DISTRESS NOTED. ASSESSMENT COMPLETED AT 1920HRS. SR PER CMHR 64. ALERT AND ORIENTED TO PERSON, PLACE AND TIME. SMITH. IV TO R HAND SL. L UPPER ARM AVF WITH GOOD BRUIT AND THRILL. LUNGSESSENTIALLY CTA. OLD BILAT BKA NOTED. BACK RUB GIVEN PER REQUEST. SR UP X2, CALL LIGHT WITHINJ REACH.
--- NOTE | 2020-10-02 20:42 | MORECARE ---
CASE MANAGEMENT DISCHARGE SUMMARY PATIENT: JIMBO LEVY UNIT: [id number] ADM DATE: 09/27/20 AGE: 55 : 61 SEX: F ROOM/BED: [facility] AUTHOR: RIZWANA,DOC PHYSICIAN: REFERRING PHYSICIAN: VLAD ALVARADO MD DATE OF SERVICE: 10/02/20 Case Management Discharge Planning Summary DCP REVIEW SUMMARY ANTICIPATED D/C DATE: EXPECTED LOS : CASE STATUS: DCP Initiated INITIAL REVIEW: 09/27/2020 INITIAL REVIEWER: Sia Diggs FINAL DISCHARGE DISPOSITION: : FINAL REVIEWER: FINAL REVIEW DATE: DCP Focus Questions & Answers DCP Screen QUESTION: ANSWER High Risk Factors: : Hosp related to CHF, COPD, DM, End Stage Ds, CVA, CA DCP Evaluation QUESTION: ANSWER Patient's ability to cope with chronic illness : d. No chronic illness Would patient like to participate in any Care Coordination programs (if applicable): : Not applicable Mental health screen: : No mental health history DCP Re-evaluation QUESTION: ANSWER Would patient like to participate in any Care Coordination programs (if applicable): : Not applicable PATIENT: JIMBO LEVY ENCOUNTER: [id number] MEDICAL RECORD#: [id number] ADMISSION DATE: 09/27/2020 DISCHARGE DATE: ATTENDING MD: : AGE: 55 MARITAL STATUS: S DC PLAN ID: [id number] FACILITY: [facility] PRINTED ON: 10/02/20 20:42 CT All edits/amendments must be made on the electronic document DICTATION DATE: 10/02/202041 PARENT COACH: FRANCO 10/02/202041 RPT#: [id number] DC DATE: STATUS: ADM IN [facility] [address] [place] [address] END OF REPORT
--- NOTE | 2020-10-02 20:52 | MORECARE ---
CASE MANAGEMENT DISCHARGE SUMMARY PATIENT: JIMBO LEVY UNIT: [id number] ADM DATE: 09/27/20 AGE: 55 : 61 SEX: F ROOM/BED: D.2103 AUTHOR: RIZWANA,DOC PHYSICIAN: REFERRING PHYSICIAN: VLAD ALVARADO MD DATE OF SERVICE: 10/02/20 Case Management Discharge Planning Summary COMMENTS ENTERED DATE: 10/02/20 20:46 CT COMMENT TYPE: Discharge Planning REVIEWER: Sia Diggs CM met with patient at bedside. Patient states that she live with her daughter and plans to return there upon discharge. Patient feels this is a safe discharge plan. Patient states that she has [facility] and plans to resume care with them upon discharge. AMANDA completed. Patient states that her daughter might can pick her up upon d/c but she uses [employer] for transportation to [facility] in [place]. CM will continue to follow and assist as needed with discharge planning / needs. DCP REVIEW SUMMARY ANTICIPATED D/C DATE: EXPECTED LOS : CASE STATUS: DCP Initiated INITIAL REVIEW: 09/27/2020 INITIAL REVIEWER: Sia Diggs FINAL DISCHARGE DISPOSITION: : FINAL REVIEWER: FINAL REVIEW DATE: DCP Focus Questions & Answers DCP Screen QUESTION: ANSWER High Risk Factors: : Hosp related to CHF, COPD, DM, End Stage Ds, CVA, CA DCP Evaluation QUESTION: ANSWER Patient's ability to cope with chronic illness : d. No chronic illness Patient gives permission to discuss discharge plans with: (name, relationship and number) : MELISA GUTIERREZ [facility] - [phone] Patient's current cognitive status: : *Oriented to person, place, situation, time and present Patient and/or caregiver agree upon recommended discharge plan? : Yes Physical Status: : Mobility impaired Functional screen assessment: : Unable to manage ADLs without immediate ongoing assistance Does the patient have the ability to pay for or attain post discharge needs / services? : Yes Partial Dependence, assistance required for: : Ambulation / Mobility Living Arrangements: : Home with Extended Family Is there a likelihood that the patient will require additional services to return to the preadmission environment? : N/A Baseline cognitive status: : *Oriented to person, place, situation, time and present Living arrangements comments: : LIVES WITH DAUGHTER Patient with capacity for self-care or can be cared for in same environment as prior to hospitalization? : Yes Results of this evaluation have been discussed with: : Patient Preadmission facility can/cannot provide post hospital level of care needs: : Can - at same level of care as preadmission Physical environment modification needed / anticipated for discharge: : N/A Medication Management: : Patient states can read and understand medication labels Pharmacy name(s): : [facility] Planned post hospital services available for patient? : Yes Does Patient have transportation to get home and to follow-up medical appointments when discharged from the hospital? : Yes Planned post hospital services covered by insurance plan? : Yes Would patient like to participate in any Care Coordination programs (if applicable): : Not applicable Does the patient have electricity at home? : Yes Does the patient have running water in their house? : Yes Equipment in use: : Bedside Commode Equipment in use: : Walker - Rolling Mental health screen: : No mental health history Psychosocial status: : Adult with physical limitations DCP Re-evaluation QUESTION: ANSWER Would patient like to participate in any Care Coordination programs (if applicable): : Not applicable PATIENT: JIMBO LEVY ENCOUNTER: [id number] MEDICAL RECORD#: [id number] ADMISSION DATE: 09/27/2020 DISCHARGE DATE: ATTENDING MD: KYLEIGH: AGE: 55 MARITAL STATUS: S DC PLAN ID: [id number] FACILITY: [facility] PRINTED ON: 10/02/20 20:52 CT All edits/amendments must be made on the electronic document DICTATION DATE: 10/02/202051 NETWORK SECURITY ARCHITECT: FRANCO 10/02/202051 RPT#: [id number] DC DATE: STATUS: ADM IN [facility] [address] [place] [address] END OF REPORT
--- NOTE | 2020-10-02 22:30 | NUR ---
PT AWAKE; DENIES ANY NEEDS AT THIS TIME. SR UP X2,CALL LIGHT WITHIN REACH.
--- NOTE | 2020-10-03 00:06 | NUR ---
PT INCONTINENT OF URINE. INCONTINENT CARE DONE. PT TOLERATED ACTIVITY WELL. REPOSITIONED IN BED. NORCO PO GIVEN FOR C/O CHRONIC BACK PAIN. SR UP XS2, CALL LIGHT WITHIN REACH.
--- NOTE | 2020-10-03 02:49 | NUR ---
PT RESTING WITH EYES CLOSED. RESP EVEN AND REGULAR. SR UP X2,CALL LIGHT WITHIN REACH.
[2020-10-03 04:07] VITALS: BP 159/54
--- NOTE | 2020-10-03 04:16 | NUR ---
PT RESTING WITH EYES CLOSED. RESP EVEN AND REGULAR. SR UP X2,CALL LIGHT WITHIN REACH.
[2020-10-03 05:25] VITALS: BP 159/54
--- NOTE | 2020-10-03 06:11 | NUR ---
PT RESTED WELL SINCE NORCO ADMINISTRATION. DENIES ANY DISCOMFORT.\THIS AM. VSS. NEEDS MET;WILL CONTINUE TO MONITOR.
[2020-10-03 06:25] LABS: ALBUMIN 3.1 g/dL (3.4-5.0); ANION GAP 16.2 mmol/L (8-16); BILIRUBIN - TOTAL 0.87 mg/dL (0.2-1.3); CALCIUM 9.3 mg/dL (8.5-10.1); CARBON DIOXIDE 27.1 mmol/L (21.0-32.0); POTASSIUM - SERUM 3.3 mmol/L (3.5-5.1); PROTEIN - SERUM 6.8 g/dL (6.4-8.2)
[2020-10-03 07:48] LABS: BASOPHILS 0.5 % (0-2); EOSINOPHILS 4.7 % (0-7); HEMATOCRIT 30.6 % (36.0-48.0); IMMATURE GRANULOCYTES 0.8 % (0-5); LYMPHOCYTE ABS# 1.96 10x3/uL (1.18-3.74); LYMPHOCYTES 29.8 % (15-50); MCH 30.5 pg (26.0-34.0); MCHC 32.7 g/dL (31.0-37.0); MCV 93.3 fL (80.0-100.0); MEAN PLATELET VOLUME 11.9 fL (7.4-10.4); MONOCYTES 8.7 % (2-11); NEUTROPHIL ABS# 3.66 10x3/uL (1.56-6.13); NEUTROPHILS 55.5 % (40-80); PLATELET COUNT 266 10x3/uL (130-400); RBC 3.28 10x6/uL (4.00-5.40); RDW 16.8 % (11.5-14.5); WBC 6.6 10x3/uL (4.8-10.8)
[2020-10-03] MEDS ORDERED: VIBRAMYCIN 100100 MG PO (07:58)
[2020-10-03] MEDS ORDERED: OMNICEF300 MG PO (07:58)
[2020-10-03] MEDS ORDERED: NEPHRO-VITE RX1 TAB PO (08:01)
[2020-10-03 08:42] VITALS: BP 138/39
--- NOTE | 2020-10-03 09:31 | MORECARE ---
CASE MANAGEMENT DISCHARGE SUMMARY PATIENT: JIMBO LEVY UNIT: [id number] ADM DATE: 09/27/20 AGE: 55 : 61 SEX: F ROOM/BED: D.2103 AUTHOR: RIZWANA,DOC PHYSICIAN: REFERRING PHYSICIAN: VLAD ALVARADO MD DATE OF SERVICE: 10/03/20 Case Management Discharge Planning Summary COMMENTS ENTERED DATE: 10/03/20 9:29 CT COMMENT TYPE: Discharge Planning REVIEWER: Jaylin Slaughter Patient states has no way to get home. She lives in [place]. States her daughter usually picks her up but she works today until 9pm. We will work with her on getting transportation home. CM to follow and assist as needed. ENTERED DATE: 10/02/20 20:46 CT COMMENT TYPE: Discharge Planning REVIEWER: Sia Diggs CM met with patient at bedside. Patient states that she live with her daughter and plans to return there upon discharge. Patient feels this is a safe discharge plan. Patient states that she has [facility] and plans to resume care with them upon discharge. AMANDA completed. Patient states that her daughter might can pick her up upon d/c but she uses [employer] for transportation to [facility] in [place]. CM will continue to follow and assist as needed with discharge planning / needs. DCP REVIEW SUMMARY ANTICIPATED D/C DATE: EXPECTED LOS : CASE STATUS: DCP Initiated INITIAL REVIEW: 09/27/2020 INITIAL REVIEWER: Sia Diggs FINAL DISCHARGE DISPOSITION: : FINAL REVIEWER: FINAL REVIEW DATE: DCP Focus Questions & Answers DCP Screen QUESTION: ANSWER High Risk Factors: : Hosp related to CHF, COPD, DM, End Stage Ds, CVA, CA DCP Evaluation QUESTION: ANSWER Patient and/or caregiver agree upon recommended discharge plan? : Yes Patient's current cognitive status: : *Oriented to person, place, situation, time and present Patient gives permission to discuss discharge plans with: (name, relationship and number) : MELISA GUTIERREZ [facility] - [phone] Patient's ability to cope with chronic illness : d. No chronic illness Does the patient have the ability to pay for or attain post discharge needs / services? : Yes Functional screen assessment: : Unable to manage ADLs without immediate ongoing assistance Physical Status: : Mobility impaired Is there a likelihood that the patient will require additional services to return to the preadmission environment? : N/A Living Arrangements: : Home with Extended Family Partial Dependence, assistance required for: : Ambulation / Mobility Results of this evaluation have been discussed with: : Patient Patient with capacity for self-care or can be cared for in same environment as prior to hospitalization? : Yes Living arrangements comments: : LIVES WITH DAUGHTER Baseline cognitive status: : *Oriented to person, place, situation, time and present Physical environment modification needed / anticipated for discharge: : N/A Preadmission facility can/cannot provide post hospital level of care needs: : Can - at same level of care as preadmission Medication Management: : Patient states can read and understand medication labels Planned post hospital services available for patient? : Yes Pharmacy name(s): : [facility] Planned post hospital services covered by insurance plan? : Yes Does Patient have transportation to get home and to follow-up medical appointments when discharged from the hospital? : Yes Would patient like to participate in any Care Coordination programs (if applicable): : Not applicable Does the patient have electricity at home? : Yes Does the patient have running water in their house? : Yes Equipment in use: : Walker - Rolling Equipment in use: : Bedside Commode Mental health screen: : No mental health history Psychosocial status: : Adult with physical limitations DCP Re-evaluation QUESTION: ANSWER Would patient like to participate in any Care Coordination programs (if applicable): : Not applicable PATIENT: JIMBO LEVY ENCOUNTER: [id number] MEDICAL RECORD#: [id number] ADMISSION DATE: 09/27/2020 DISCHARGE DATE: ATTENDING MD: KYLEIGH: AGE: 55 MARITAL STATUS: S DC PLAN ID: [id number] FACILITY: [facility] PRINTED ON: 10/03/20 9:31 CT All edits/amendments must be made on the electronic document DICTATION DATE: 10/03/20930 CHOCOLATE DIPPER: FRANCO 10/03/20930 RPT#: [id number] DC DATE: STATUS: ADM IN [facility] [address] [place] [address] END OF REPORT
--- NOTE | 2020-10-03 09:33 | NUR ---
OFF FLOOR TO DIALYSIS.
--- NOTE | 2020-10-03 09:52 | MORECARE ---
CASE MANAGEMENT DISCHARGE SUMMARY PATIENT: JIMBO LEVY UNIT: [id number] ADM DATE: 09/27/20 AGE: 55 : 61 SEX: F ROOM/BED: D.2103 AUTHOR: RIZWANA,DOC PHYSICIAN: REFERRING PHYSICIAN: VLAD ALVARADO MD DATE OF SERVICE: 10/03/20 Case Management Discharge Planning Summary COMMENTS ENTERED DATE: 10/03/20 9:29 CT COMMENT TYPE: Discharge Planning REVIEWER: Jaylin Slaughter Patient states has no way to get home. She lives in [place]. States her daughter usually picks her up but she works today until 9pm. We will work with her on getting transportation home. CM to follow and assist as needed. Appended by Jaylin Slaughter on 10/03/2020 9:48 CDT: [facility] BUS WILL ASSEMBLER DRY CELL AND BATTERY TODAY AROUND 11AM AND TRANSPORT TO HOME. ENTERED DATE: 10/02/20 20:46 CT COMMENT TYPE: Discharge Planning REVIEWER: Sia Diggs CM met with patient at bedside. Patient states that she live with her daughter and plans to return there upon discharge. Patient feels this is a safe discharge plan. Patient states that she has [facility] and plans to resume care with them upon discharge. AMANDA completed. Patient states that her daughter might can pick her up upon d/c but she uses [facility] for transportation to [facility] in [place]. CM will continue to follow and assist as needed with discharge planning / needs. DCP REVIEW SUMMARY ANTICIPATED D/C DATE: EXPECTED LOS : CASE STATUS: DCP Initiated INITIAL REVIEW: 09/27/2020 INITIAL REVIEWER: Sia Diggs FINAL DISCHARGE DISPOSITION: : FINAL REVIEWER: FINAL REVIEW DATE: DCP Focus Questions & Answers DCP Screen QUESTION: ANSWER High Risk Factors: : Hosp related to CHF, COPD, DM, End Stage Ds, CVA, CA DCP Evaluation QUESTION: ANSWER Patient and/or caregiver agree upon recommended discharge plan? : Yes Patient's current cognitive status: : *Oriented to person, place, situation, time and present Patient gives permission to discuss discharge plans with: (name, relationship and number) : MELISA GUTIERREZ [facility] - [phone] Patient's ability to cope with chronic illness : d. No chronic illness Does the patient have the ability to pay for or attain post discharge needs / services? : Yes Functional screen assessment: : Unable to manage ADLs without immediate ongoing assistance Physical Status: : Mobility impaired Is there a likelihood that the patient will require additional services to return to the preadmission environment? : N/A Living Arrangements: : Home with Extended Family Partial Dependence, assistance required for: : Ambulation / Mobility Results of this evaluation have been discussed with: : Patient Patient with capacity for self-care or can be cared for in same environment as prior to hospitalization? : Yes Living arrangements comments: : LIVES WITH DAUGHTER Baseline cognitive status: : *Oriented to person, place, situation, time and present Physical environment modification needed / anticipated for discharge: : N/A Preadmission facility can/cannot provide post hospital level of care needs: : Can - at same level of care as preadmission Medication Management: : Patient states can read and understand medication labels Planned post hospital services available for patient? : Yes Pharmacy name(s): : [facility] Planned post hospital services covered by insurance plan? : Yes Does Patient have transportation to get home and to follow-up medical appointments when discharged from the hospital? : Yes Would patient like to participate in any Care Coordination programs (if applicable): : Not applicable Does the patient have electricity at home? : Yes Does the patient have running water in their house? : Yes Equipment in use: : Walker - Rolling Equipment in use: : Bedside Commode Mental health screen: : No mental health history Psychosocial status: : Adult with physical limitations DCP Re-evaluation QUESTION: ANSWER Would patient like to participate in any Care Coordination programs (if applicable): : Not applicable PATIENT: JIMBO LEVY ENCOUNTER: [id number] MEDICAL RECORD#: [id number] ADMISSION DATE: 09/27/2020 DISCHARGE DATE: ATTENDING MD: KYLEIGH: AGE: 55 MARITAL STATUS: S DC PLAN ID: [id number] FACILITY: [facility] PRINTED ON: 10/03/20 9:52 CT All edits/amendments must be made on the electronic document DICTATION DATE: 10/03/20951 ROLLER PRINT TENDER: FRANCO 10/03/20951 RPT#: [id number] DC DATE: STATUS: ADM IN [facility] [address] [facility] [address] END OF REPORT
--- NOTE | 2020-10-03 10:03 | MORECARE ---
CASE MANAGEMENT DISCHARGE SUMMARY PATIENT: JIMBO LEVY UNIT: [id number] ADM DATE: 09/27/20 AGE: 55 : 61 SEX: F ROOM/BED: D.2103 AUTHOR: RIZWANA,DOC PHYSICIAN: REFERRING PHYSICIAN: VLAD ALVARADO MD DATE OF SERVICE: 10/03/20 Case Management Discharge Planning Summary COMMENTS ENTERED DATE: 10/03/20 9:29 CT COMMENT TYPE: Discharge Planning REVIEWER: Jaylin Slaughter Patient states has no way to get home. She lives in [place]. States her daughter usually picks her up but she works today until 9pm. We will work with her on getting transportation home. CM to follow and assist as needed. Appended by Jaylin Slaughter on 10/03/2020 9:48 CDT: [facility] BUS WILL CASH REGISTER OPERATOR TODAY AROUND 11AM AND TRANSPORT TO HOME. Appended by Jaylin Slaughter on 10/03/2020 9:55 CDT: PATIENT IS IN DIALYSIS, [facility] BUS TIME CHANGED TO 3PM TODAY. RN NOTIFIED. [facility] WILL CALL THE UNIT WHEN THEY ARE HERE. ENTERED DATE: 10/02/20 20:46 CT COMMENT TYPE: Discharge Planning REVIEWER: Sia Diggs CM met with patient at bedside. Patient states that she live with her daughter and plans to return there upon discharge. Patient feels this is a safe discharge plan. Patient states that she has [facility] and plans to resume care with them upon discharge. AMANDA completed. Patient states that her daughter might can pick her up upon d/c but she uses [facility] for transportation to [facility] in [place]. CM will continue to follow and assist as needed with discharge planning / needs. DCP REVIEW SUMMARY ANTICIPATED D/C DATE: EXPECTED LOS : CASE STATUS: DCP Initiated INITIAL REVIEW: 09/27/2020 INITIAL REVIEWER: Sia Diggs FINAL DISCHARGE DISPOSITION: : FINAL REVIEWER: FINAL REVIEW DATE: DCP Focus Questions & Answers DCP Screen QUESTION: ANSWER High Risk Factors: : Hosp related to CHF, COPD, DM, End Stage Ds, CVA, CA DCP Evaluation QUESTION: ANSWER Patient and/or caregiver agree upon recommended discharge plan? : Yes Patient's current cognitive status: : *Oriented to person, place, situation, time and present Patient gives permission to discuss discharge plans with: (name, relationship and number) : MELISA Keys [facility] - [phone] Patient's ability to cope with chronic illness : d. No chronic illness Does the patient have the ability to pay for or attain post discharge needs / services? : Yes Functional screen assessment: : Unable to manage ADLs without immediate ongoing assistance Physical Status: : Mobility impaired Is there a likelihood that the patient will require additional services to return to the preadmission environment? : N/A Living Arrangements: : Home with Extended Family Partial Dependence, assistance required for: : Ambulation / Mobility Results of this evaluation have been discussed with: : Patient Patient with capacity for self-care or can be cared for in same environment as prior to hospitalization? : Yes Living arrangements comments: : LIVES WITH DAUGHTER Baseline cognitive status: : *Oriented to person, place, situation, time and present Physical environment modification needed / anticipated for discharge: : N/A Preadmission facility can/cannot provide post hospital level of care needs: : Can - at same level of care as preadmission Medication Management: : Patient states can read and understand medication labels Planned post hospital services available for patient? : Yes Pharmacy name(s): : [facility] Planned post hospital services covered by insurance plan? : Yes Does Patient have transportation to get home and to follow-up medical appointments when discharged from the hospital? : Yes Would patient like to participate in any Care Coordination programs (if applicable): : Not applicable Does the patient have electricity at home? : Yes Does the patient have running water in their house? : Yes Equipment in use: : Walker - Rolling Equipment in use: : Bedside Commode Mental health screen: : No mental health history Psychosocial status: : Adult with physical limitations DCP Re-evaluation QUESTION: ANSWER Would patient like to participate in any Care Coordination programs (if applicable): : Not applicable PATIENT: JIMBO LEVY ENCOUNTER: [id number] MEDICAL RECORD#: [id number] ADMISSION DATE: 09/27/2020 DISCHARGE DATE: ATTENDING MD: KYLEIGH: AGE: 55 MARITAL STATUS: S DC PLAN ID: [id number] FACILITY: [facility] PRINTED ON: 10/03/20 10:03 CT All edits/amendments must be made on the electronic document DICTATION DATE: 10/03/20 100 SALES REPRESENTATIVE BUSINESS COURSES: FRANCO 10/03/20 100 RPT#: [id number] DC DATE: STATUS: ADM IN [facility] [address] [place] [address] END OF REPORT
--- NOTE | 2020-10-03 15:11 | NUR ---
D/C RIGHT HAND IV, TIP INTACT. PROSTHESIS PUT ON BOTH LEGS. TAKEN DOWN TO Zipwhip VIA WHEELCHAIR. REMAINS FREE FROM INJURY.
--- NOTE | 2020-10-04 14:07 | EC ---
PATIENT:JIMBO LEVY DATE OF SERVICE: 09/27/20 SEX: F MEDICAL RECORD: [id number] DATE OF : 61 LOCATION:D.M2 D.210 AGE OF PATIENT: 55 ADMISSION DATE: 09/27/20 REFERRING PHYSICIAN: INTERPRETING PHYSICIAN: VLAD STRANGE MD ECHOCARDIOGRAM REPORT ECHO CHARGES 5 ECHO LIMITED Date: 09/28/20 CLINICAL DIAGNOSIS: SOB ECHOCARDIOGRAPHIC MEASUREMENTS (adult normal given) AC root (d.<3.7cm) 0 cm LV Septum d (<1.2 cm> 0 cm Valve Excursion 0 cm LV Septum (systole) 0 cm Left Atria (s.<4.0cm> 0 cm LVPW d(<1.2cm) 0 cm RV (d.<2.3cm) 0 cm LVPW (sytole) 0 cm LV diastole(<5.6CM) 0 cm MV E-F(>70mm/sec) 0 cm LV systole 0 cm LVOT Diameter cm MV exc.(>10mm) 0 cm Est.ejection fraction (50-75%) % DOPPLER: LVIT 0 cm/sec A 0 cm/sec E 0 cm/sec LA 0 cm/sec RVSP 50 mmHg LVOT 0 cm/sec AOP1/2T m/s Asc. Ao 0 cm/sec RVOT 0 cm/sec RA 00 cm/sec PA cm/sec AV Gradient Peak 0 mmHg AV Mean 0 mmHg AV Area 0 cm MV Gradient Peak 0 mmHg MV Mean 0 mmHg MV Area cm COMMENTS: Consulting Software Engineer: Jame NAGY Line Supply: 3 Dr. Lopez TAPE# Pericardial Effusion N DATE OF SERVICE: Limited 2D and color flow. Grossly, no LVH. LV internal dimensions are normal. Wall motion is normal. EF is greater than or equal to 55%. Aortic valve has good valve excursion. Left atrium grossly appears normal. Mitral valve appears normal. Trivial MR. Right side is grossly normal. Mild TR. TRANSINT:[id number] Voice Confirmation ID: [id number] DOCUMENT ID: [id number] ECHOCARDIOGRAM REPORT [id number] JIMBO LEVY VLDA STRANGE MD at 1407 CC: [id number] DICTATION DATE: 09/29/20 0844 PASTING INSPECTOR: 09/29/20 1205 DIS IN 10/03/20 [facility] [address] [place] [address]
--- NOTE | 2020-10-05 07:15 | MORECARE ---
CASE MANAGEMENT DISCHARGE SUMMARY PATIENT: JIMBO LEVY UNIT: [id number] ADM DATE: 09/27/20 AGE: 55 : 61 SEX: F ROOM/BED: D.2103 AUTHOR: RIZWANA,DOC PHYSICIAN: REFERRING PHYSICIAN: VLAD ALVARADO MD DATE OF SERVICE: 10/05/20 Case Management Discharge Planning Summary COMMENTS ENTERED DATE: 10/03/20 9:29 CT COMMENT TYPE: Discharge Planning REVIEWER: Jaylin Slaughter Patient states has no way to get home. She lives in [place]. States her daughter usually picks her up but she works today until 9pm. We will work with her on getting transportation home. CM to follow and assist as needed. Appended by Jaylin Slaughter on 10/03/2020 9:48 CDT: [facility] BUS WILL FUDGE CANDY MAKER TODAY AROUND 11AM AND TRANSPORT TO HOME. Appended by Jaylin Slaughter on 10/03/2020 9:55 CDT: PATIENT IS IN DIALYSIS, [facility] BUS TIME CHANGED TO 3PM TODAY. RN NOTIFIED. [facility] WILL CALL THE UNIT WHEN THEY ARE HERE. ENTERED DATE: 10/02/20 20:46 CT COMMENT TYPE: Discharge Planning REVIEWER: Sia Diggs CM met with patient at bedside. Patient states that she live with her daughter and plans to return there upon discharge. Patient feels this is a safe discharge plan. Patient states that she has [facility] and plans to resume care with them upon discharge. AMANDA completed. Patient states that her daughter might can pick her up upon d/c but she uses [facility] for transportation to HD [facility] in [place]. CM will continue to follow and assist as needed with discharge planning / needs. DCP REVIEW SUMMARY ANTICIPATED D/C DATE: EXPECTED LOS : CASE STATUS: DCP Complete INITIAL REVIEW: 09/27/2020 INITIAL REVIEWER: Sia Diggs FINAL DISCHARGE DISPOSITION: 06 : Discharged/Trans to Home Under Care of Organized Home Health Service in Anticipation of Skilled Care FINAL REVIEWER: Angela Lutz FINAL REVIEW DATE: 10/05/2020 DCP Focus Questions & Answers DCP Screen QUESTION: ANSWER High Risk Factors: : Hosp related to CHF, COPD, DM, End Stage Ds, CVA, CA DCP Evaluation QUESTION: ANSWER Patient and/or caregiver agree upon recommended discharge plan? : Yes Patient's current cognitive status: : *Oriented to person, place, situation, time and present Patient gives permission to discuss discharge plans with: (name, relationship and number) : MELISA Keys [facility] - [phone] Patient's ability to cope with chronic illness : d. No chronic illness Does the patient have the ability to pay for or attain post discharge needs / services? : Yes Functional screen assessment: : Unable to manage ADLs without immediate ongoing assistance Physical Status: : Mobility impaired Is there a likelihood that the patient will require additional services to return to the preadmission environment? : N/A Living Arrangements: : Home with Extended Family Partial Dependence, assistance required for: : Ambulation / Mobility Results of this evaluation have been discussed with: : Patient Patient with capacity for self-care or can be cared for in same environment as prior to hospitalization? : Yes Living arrangements comments: : LIVES WITH DAUGHTER Baseline cognitive status: : *Oriented to person, place, situation, time and present Physical environment modification needed / anticipated for discharge: : N/A Preadmission facility can/cannot provide post hospital level of care needs: : Can - at same level of care as preadmission Medication Management: : Patient states can read and understand medication labels Planned post hospital services available for patient? : Yes Pharmacy name(s): : [facility] Planned post hospital services covered by insurance plan? : Yes Does Patient have transportation to get home and to follow-up medical appointments when discharged from the hospital? : Yes Would patient like to participate in any Care Coordination programs (if applicable): : Not applicable Does the patient have electricity at home? : Yes Does the patient have running water in their house? : Yes Equipment in use: : Walker - Rolling Equipment in use: : Bedside Commode Mental health screen: : No mental health history Psychosocial status: : Adult with physical limitations DCP Re-evaluation QUESTION: ANSWER Would patient like to participate in any Care Coordination programs (if applicable): : Not applicable PATIENT: JIMBO LEVY ENCOUNTER: [id number] MEDICAL RECORD#: [id number] ADMISSION DATE: 09/27/2020 DISCHARGE DATE: 10/03/2020 ATTENDING MD: KYLEIGH: AGE: 55 MARITAL STATUS: S DC PLAN ID: [id number] FACILITY: [facility] PRINTED ON: 10/05/20 7:15 CT All edits/amendments must be made on the electronic document DICTATION DATE: 10/05/20714 CRAWLER CRANE OPERATOR: FRANCO 10/05/20714 RPT#: [id number] DC DATE:10/03/20 STATUS: DIS IN [facility] [address] [place] [address] END OF REPORT
--- NOTE | 2020-10-06 10:00 | MORECARE ---
CASE MANAGEMENT DISCHARGE SUMMARY PATIENT: JIMBO LEVY UNIT: [id number] ADM DATE: 09/27/20 AGE: 55 : 61 SEX: F ROOM/BED: D.2103 AUTHOR: RIZWANA,DOC PHYSICIAN: REFERRING PHYSICIAN: VLAD ALVARADO MD DATE OF SERVICE: 10/06/20 Case Management Discharge Planning Summary COMMENTS ENTERED DATE: 10/03/20 9:29 CT COMMENT TYPE: Discharge Planning REVIEWER: Jaylin Slaughter Patient states has no way to get home. She lives in [place]. States her daughter usually picks her up but she works today until 9pm. We will work with her on getting transportation home. CM to follow and assist as needed. Appended by Jaylin Slaughter on 10/03/2020 9:48 CDT: [facility] BUS WILL SHAPER SET UP OPERATOR TODAY AROUND 11AM AND TRANSPORT TO HOME. Appended by Jaylin Slaughter on 10/03/2020 9:55 CDT: PATIENT IS IN DIALYSIS, [facility] BUS TIME CHANGED TO 3PM TODAY. RN NOTIFIED. [facility] CALL THE UN[facility] WHEN THEY ARE HERE. ENTERED DATE: 10/02/20 20:46 CT COMMENT TYPE: Discharge Planning REVIEWER: Sia Diggs CM met with patient at bedside. Patient states that she live with her daughter and plans to return there upon discharge. Patient feels this is a safe discharge plan. Patient states that she has [facility] and plans to resume care with them upon discharge. AMANDA completed. Patient states that her daughter might can pick her up upon d/c but she uses [facility] for transportation to HD [facility] in [place]. CM will continue to follow and assist as needed with discharge planning / needs. DCP REVIEW SUMMARY ANTICIPATED D/C DATE: EXPECTED LOS : CASE STATUS: DCP Complete INITIAL REVIEW: 09/27/2020 INITIAL REVIEWER: Sia Diggs FINAL DISCHARGE DISPOSITION: 06 : Discharged/Trans to Home Under Care of Organized Home Health Service in Anticipation of Skilled Care FINAL REVIEWER: Angela Lutz FINAL REVIEW DATE: 10/05/2020 DCP Focus Questions & Answers DCP Screen QUESTION: ANSWER High Risk Factors: : Hosp related to CHF, COPD, DM, End Stage Ds, CVA, CA DCP Evaluation QUESTION: ANSWER Patient and/or caregiver agree upon recommended discharge plan? : Yes Patient's current cognitive status: : *Oriented to person, place, situation, time and present Patient gives permission to discuss discharge plans with: (name, relationship and number) : MELISA Keys [facility] - [phone] Patient's ability to cope with chronic illness : d. No chronic illness Does the patient have the ability to pay for or attain post discharge needs / services? : Yes Functional screen assessment: : Unable to manage ADLs without immediate ongoing assistance Physical Status: : Mobility impaired Is there a likelihood that the patient will require additional services to return to the preadmission environment? : N/A Living Arrangements: : Home with Extended Family Partial Dependence, assistance required for: : Ambulation / Mobility Results of this evaluation have been discussed with: : Patient Patient with capacity for self-care or can be cared for in same environment as prior to hospitalization? : Yes Living arrangements comments: : LIVES WITH DAUGHTER Baseline cognitive status: : *Oriented to person, place, situation, time and present Physical environment modification needed / anticipated for discharge: : N/A Preadmission facility can/cannot provide post hospital level of care needs: : Can - at same level of care as preadmission Medication Management: : Patient states can read and understand medication labels Planned post hospital services available for patient? : Yes Pharmacy name(s): : [facility] Planned post hospital services covered by insurance plan? : Yes Does Patient have transportation to get home and to follow-up medical appointments when discharged from the hospital? : Yes Would patient like to participate in any Care Coordination programs (if applicable): : Not applicable Does the patient have electricity at home? : Yes Does the patient have running water in their house? : Yes Equipment in use: : Walker - Rolling Equipment in use: : Bedside Commode Mental health screen: : No mental health history Psychosocial status: : Adult with physical limitations DCP Re-evaluation QUESTION: ANSWER Would patient like to participate in any Care Coordination programs (if applicable): : Not applicable PATIENT: JIMBO LEVY ENCOUNTER: [id number] MEDICAL RECORD#: [id number] ADMISSION DATE: 09/27/2020 DISCHARGE DATE: 10/03/2020 ATTENDING MD: KYLEIGH: AGE: 55 MARITAL STATUS: S DC PLAN ID: [id number] FACILITY: [facility] PRINTED ON: 10/06/20 10:00 CT All edits/amendments must be made on the electronic document DICTATION DATE: 10/06/20958 STEEL WORKER: FRANCO 10/06/20958 RPT#: [id number] DC DATE:10/03/20 STATUS: DIS IN [facility] [address] [place] [address] END OF REPORT
== END 2020-10-03 15:40 | disposition home health service (06) | DRG 193 ==
LOC: D.ER 02:08 → D.M2 03:26
PROVIDERS: Emergency Medicine; Internal Medicine Pulmonary Disease; Student in an Organized Health Care Education/Training Program; ADMIT Family Medicine; ATTEND Family Medicine
PROC: 5A1D70Z Performance of Urinary Filtration, Intermittent, Less than 6 Hours Per Day (ICD-10-PCS; principal; 2020-09-28)
DX: J18.9 Pneumonia, unspecified organism (principal); N18.6 End stage renal disease; I12.0 Hypertensive chronic kidney disease with stage 5 chronic kidney disease or end stage renal disease; Z20.822 Contact with and (suspected) exposure to COVID-19; E11.22 Type 2 diabetes mellitus with diabetic chronic kidney disease; E11.65 Type 2 diabetes mellitus with hyperglycemia; Z99.2 Dependence on renal dialysis; K59.00 Constipation, unspecified; K21.9 Gastro-esophageal reflux disease without esophagitis; D63.1 Anemia in chronic kidney disease; E11.51 Type 2 diabetes mellitus with diabetic peripheral angiopathy without gangrene; F32.9 Major depressive disorder, single episode, unspecified; E87.70 Fluid overload, unspecified